=== PATIENT | male | born 1940 | race Caucasian/White ===

== ENCOUNTER 2019-10-05 13:16 | Inpatient (IN) ==
[2019-10-05] MEDS ORDERED: SODIUM CHLORIDE 0.9% 1,000 ML IV STA ×3 (13:45→16:28)
[2019-10-05] MEDS ORDERED: ONDANSETRON 4 MG/2 ML VIAL IV STA (13:45)
[2019-10-05 14:23] LABS: Basophils # 0.1 10*3/uL (0.0-0.2); Basophils % 0.4 % (0.0-0.8); Hematocrit 35.7 VOL% (42.0-52.0); Hemoglobin 10.8 GM/DL (14.0-18.0); Immature Granulocytes % 3.1 %; Immature Granulocytes Absolute 1.01 #; Lymphocytes # 0.6 10*3/uL (1.4-4.0); Lymphocytes % 1.7 % (21.2-54.2); Mean Corpuscular HGB Conc 30.3 GM/DL (32-36); Mean Corpuscular Volume 86.2 FL (87-102); Mean Platelet Volume 11.3 FL (9.6-12.0); Monocytes % 3.6 % (1.7-12.7); Neutrophils % 91.2 % (38.7-73.9); Platelet Count 252 T/CUMM (130-400); Red Blood Count 4.14 MC/CUMM (3.8-5.5); Red Cell Distribution Width 20.4 % (9.3-17.3); White Blood Count 32.9 T/CUMM (4-12)
[2019-10-05] MEDS ORDERED: LEVOFLOXACIN INJ 750 MG in PREMIX 1 EACH IV STA (14:54)
[2019-10-05] MEDS ORDERED: VANCOMYCIN INJ 1,250 MG in SODIUM CHLORIDE 0.9% 250 ML IV STA (14:57)
[2019-10-05 15:11] LABS: Alanine Aminotransferase 35 U/L (16-61); Albumin 2.9 G/DL (3.4-5.0); Alkaline Phosphatase 212 U/L (45-117); Aspartate Amino Transferase 71 U/L (0-37); Blood Urea Nitrogen 30 MG/DL (7-18); Calcium 8.8 MG/DL (8.5-10.1); Estimated Glom Filtration Rate 16 ML/MIN; Glucose 118 MG/DL (74-106); Osmolality,Calculated 279.8 MOS/KG (273-304); Total Protein 6.5 G/DL (6.4-8.3)
[2019-10-05] MEDS ORDERED: LEVOFLOXACIN INJ 500 MG in PREMIX 1 EACH IV STA (15:51)
[2019-10-05] MEDS ORDERED: MORPHINE 4 MG/1 ML VIAL IV PRN (16:21)
[2019-10-05] MEDS ORDERED: SODIUM BICARBONATE 50 MEQ/50 ML VIAL IV STA (16:28)
[2019-10-05] MEDS ORDERED: DOPamine 800 MG/250 ML PREMIX IV SCH (16:30)
[2019-10-05 16:35] LABS: Apearance,Urine CLOUDY (Clear); Bilirubin,Urine Negative (Negative); Blood, Urine Large mg/dL (Negative); Glucose,Urine (UA) Negative (Negative); Ketones,Urine Negative (Negative); Nitrite,Urine Negative (Negative); Protein,Urine 100 MG/DL; RBC,Urine 366 /HPF (0-4); Urine Color Amber (Yellow); Urine Specific Gravity 1.018 (1.001-1.035); WBC,Urine 2254 /HPF (0-6)
[2019-10-05 16:55] LABS: INR 1.4; PT Patient Result 14.7 SECS (9.8-11.9)
[2019-10-05] MEDS ORDERED: ACETAMINOPHEN 325 MG SUPP RECTAL ONE (17:20)
[2019-10-05] MEDS ORDERED: DOPamine 800 MG/250 ML PREMIX IV PRN (18:00)
[2019-10-05] MEDS ORDERED: fentaNYL 100 MCG/2 ML VIAL ONE (18:55)
[2019-10-05] MEDS ORDERED: CALCIUM CHLORIDE 1,000 MG/10 ML VIAL IV ONE (18:55)
[2019-10-05] MEDS ORDERED: SEVOFLURANE 1 UNIT/15 MINUTE INH ONE (18:55)
[2019-10-05] MEDS ORDERED: NALOXONE 0.4 MG/ML VIAL ONE (18:55)
[2019-10-05] MEDS ORDERED: ALBUMIN 5% 12.5 GM/250 ML VIAL IV ONE (18:55)
[2019-10-05] MEDS ORDERED: LIDOCAINE 2% 5 ML VIAL ONE (18:55)
[2019-10-05] MEDS ORDERED: EPINEPHrine 1 MG/ML VIAL ONE (18:55)
[2019-10-05] MEDS ORDERED: DEXAMETHASONE 4 MG/1 ML VIAL ONE (18:55)
[2019-10-05] MEDS ORDERED: ONDANSETRON 4 MG/2 ML VIAL ONE (18:55)
[2019-10-05] MEDS ORDERED: SODIUM CHLORIDE 0.9% 250 ML IV ONE (18:56)
[2019-10-05] MEDS ORDERED: SUCCINYLCHOLINE 200 MG/10 ML VIAL ONE (18:56)
[2019-10-05] MEDS ORDERED: LACTATED RINGERS 1,000 ML IV ONE (18:56)
[2019-10-05] MEDS ORDERED: ETOMIDATE 40 MG/20 ML VIAL IV ONE (18:56)
[2019-10-05] MEDS ORDERED: LORazepam 2 MG/1 ML VIAL ONE (19:01)
[2019-10-05] MEDS: SODIUM BICARB INJ 100 MEQ in DEXTROSE 5% 1,000 ML IV SCH (19:01)
[2019-10-05] MEDS: ENOXAPARIN 30 MG/0.3 ML SYRINGE SUBCUT SCH (20:39)
[2019-10-05] MEDS: PANTOPRAZOLE 40 MG VIAL IV SCH (20:39)
[2019-10-05] MEDS: LORazepam 2 MG/1 ML VIAL IV PRN (20:49)
[2019-10-05] MEDS: CLINDAMYCIN INJ 900 MG in PREMIX 1 EACH IV SCH (21:31)
[2019-10-05] MEDS: LINEZOLID INJ 600 MG in PREMIX 1 EACH IV SCH (22:04)
[2019-10-06] MEDS: LORazepam 2 MG/1 ML VIAL IV PRN ×2 (01:13→16:13)
[2019-10-06 04:06] LABS: Basophils % 0.1 % (0.0-0.8); Hematocrit 29.1 VOL% (42.0-52.0); Hemoglobin 9.2 GM/DL (14.0-18.0); Lymphocytes # 0.9 10*3/uL (1.4-4.0); Lymphocytes % 2.5 % (21.2-54.2); Mean Corpuscular HGB Conc 31.6 GM/DL (32-36); Mean Corpuscular Volume 83.4 FL (87-102); Mean Platelet Volume 11.4 FL (9.6-12.0); Monocytes % 5.5 % (1.7-12.7); Neutrophils % 85.9 % (38.7-73.9); Platelet Count 173 T/CUMM (130-400); Red Blood Count 3.49 MC/CUMM (3.8-5.5); Red Cell Distribution Width 20.8 % (9.3-17.3); White Blood Count 36.4 T/CUMM (4-12)
[2019-10-06] MEDS: CLINDAMYCIN INJ 900 MG in PREMIX 1 EACH IV SCH ×3 (04:22→21:12)
[2019-10-06 04:28] LABS: Albumin 2.3 G/DL (3.4-5.0); Bilirubin,Total 1.6 MG/DL (0.2-1.0); Calcium 7.9 MG/DL (8.5-10.1); Osmolality,Calculated 278.2 MOS/KG (273-304); Total Protein 5.6 G/DL (6.4-8.3)
[2019-10-06 05:34] LABS: Band Neutrophils 16 % (0-10); Lymphocytes 2 % (20-55); Metamyelocytes 4 %; Myelocytes 2 %; Segmented Neutrophils 72 % (50-85); Total Cells Counted 100
[2019-10-06 05:38] LABS: Hypochromasia 1+
[2019-10-06 05:39] LABS: Microcytosis 1+; Ovalocytes Slight
[2019-10-06 05:44] LABS: Band Neutrophils 18 % (0-10); Lymphocytes 3 % (20-55); Metamyelocytes 5 %; Myelocytes 1 %; Segmented Neutrophils 67 % (50-85); Total Cells Counted 100
[2019-10-06 05:46] LABS: Hypochromasia 1+; Microcytosis 1+
[2019-10-06 05:47] LABS: Giant Platelets Few; Ovalocytes Slight; Platelet Estimate Normal
[2019-10-06] MEDS: SODIUM BICARB INJ 100 MEQ in DEXTROSE 5% 1,000 ML IV SCH ×2 (05:54→17:36)
[2019-10-06] MEDS: LINEZOLID INJ 600 MG in PREMIX 1 EACH IV SCH ×2 (08:21→21:13)
[2019-10-06] MEDS ORDERED: LEVOFLOXACIN INJ 500 MG in PREMIX 1 EACH IV SCH (16:30)
[2019-10-06] MEDS: ENOXAPARIN 30 MG/0.3 ML SYRINGE SUBCUT SCH (21:12)
[2019-10-06] MEDS: PANTOPRAZOLE 40 MG VIAL IV SCH (21:12)
[2019-10-07 03:13] LABS: Hematocrit 28.3 VOL% (42.0-52.0); Hemoglobin 9.3 GM/DL (14.0-18.0); Immature Granulocytes Absolute 1.73 #; Lymphocytes # 1.1 10*3/uL (1.4-4.0); Lymphocytes % 3.8 % (21.2-54.2); Mean Corpuscular HGB Conc 32.9 GM/DL (32-36); Mean Corpuscular Volume 79.5 FL (87-102); Mean Platelet Volume 11.9 FL (9.6-12.0); Monocytes % 4.5 % (1.7-12.7); NRBC # 0.03 10*3/uL; Neutrophils % 85.7 % (38.7-73.9); Platelet Count 151 T/CUMM (130-400); Red Blood Count 3.56 MC/CUMM (3.8-5.5); Red Cell Distribution Width 20.3 % (9.3-17.3)
[2019-10-07 03:27] LABS: Calcium 7.8 MG/DL (8.5-10.1); Osmolality,Calculated 277.7 MOS/KG (273-304)
[2019-10-07] MEDS: SODIUM BICARB INJ 100 MEQ in DEXTROSE 5% 1,000 ML IV SCH (03:54)
[2019-10-07 04:13] LABS: Band Neutrophils 7 % (0-10); Lymphocytes 6 % (20-55); Segmented Neutrophils 84 % (50-85); Total Cells Counted 100
[2019-10-07 04:14] LABS: Hypochromasia 1+; Platelet Estimate Adequate
[2019-10-07 04:15] LABS: Microcytosis 1+; Ovalocytes Slight
[2019-10-07] MEDS: CLINDAMYCIN INJ 900 MG in PREMIX 1 EACH IV SCH ×3 (05:30→20:28)
[2019-10-07] MEDS: LINEZOLID INJ 600 MG in PREMIX 1 EACH IV SCH (08:36)
[2019-10-07] MEDS: LEVOFLOXACIN INJ 500 MG in PREMIX 1 EACH IV SCH (14:03)
[2019-10-07] MEDS: SODIUM BICARB INJ 50 MEQ in SODIUM CHLORIDE 0.45% 1,000 ML IV SCH (14:03)
[2019-10-07] MEDS ORDERED: METOCLOPRAMIDE 10 MG TABLET PO PRN (17:53)
[2019-10-07] MEDS ORDERED: FUROSEMIDE 40 MG/4 ML VIAL IV ONE (20:12)
[2019-10-07] MEDS ORDERED: MAGNESIUM SULF RIDER 2 GM in PREMIX 1 EACH IV ONE (20:12)
[2019-10-07] MEDS: cilostazoL 50 MG TABLET PO SCH (20:31)
[2019-10-07] MEDS: HEPARIN 5,000 UNIT/1 ML VIAL SUBCUT SCH (20:32)
[2019-10-08] MEDS: SODIUM BICARB INJ 50 MEQ in SODIUM CHLORIDE 0.45% 1,000 ML IV SCH (00:33)
[2019-10-08 03:11] LABS: Basophils % 0.1 % (0.0-0.8); Eosinophils % 0.1 % (0.00-10.9); Hematocrit 29.9 VOL% (42.0-52.0); Hemoglobin 10.2 GM/DL (14.0-18.0); Immature Granulocytes % 0.9 %; Lymphocytes # 1.6 10*3/uL (1.4-4.0); Lymphocytes % 4.8 % (21.2-54.2); Mean Corpuscular HGB Conc 34.1 GM/DL (32-36); Mean Corpuscular Volume 76.3 FL (87-102); Mean Platelet Volume 11.8 FL (9.6-12.0); Monocytes % 2.2 % (1.7-12.7); NRBC # 0.05 10*3/uL; Neutrophils % 91.9 % (38.7-73.9); Platelet Count 150 T/CUMM (130-400); Red Blood Count 3.92 MC/CUMM (3.8-5.5); Red Cell Distribution Width 19.5 % (9.3-17.3); White Blood Count 32.2 T/CUMM (4-12)
[2019-10-08 03:28] LABS: Calcium 7.8 MG/DL (8.5-10.1); Osmolality,Calculated 274.1 MOS/KG (273-304)
[2019-10-08 04:15] LABS: Lymphocytes 4 % (20-55); Segmented Neutrophils 94 % (50-85); Total Cells Counted 100
[2019-10-08 04:16] LABS: Anisocytosis 1+; Platelet Estimate Normal; Target Cells 1+
[2019-10-08] MEDS ORDERED: POTASSIUM CHLORIDE 20 MEQ TABLET PO ONE (05:40)
[2019-10-08] MEDS: CLINDAMYCIN INJ 900 MG in PREMIX 1 EACH IV SCH ×3 (06:09→20:32)
[2019-10-08] MEDS: HEPARIN 5,000 UNIT/1 ML VIAL SUBCUT SCH ×3 (06:09→20:39)
[2019-10-08] MEDS: CLOPIDOGREL 75 MG TABLET PO SCH (08:23)
[2019-10-08] MEDS: cilostazoL 50 MG TABLET PO SCH ×2 (08:23→20:38)
[2019-10-08] MEDS: ASPIRIN EC 325 MG TABLET PO SCH (08:23)
[2019-10-08] MEDS: PANTOPRAZOLE 40 MG TABLET PO SCH (08:23)
[2019-10-08 08:59] LABS: Ferritin 185.1 ng/ml (26-388)
[2019-10-08] MEDS: ONDANSETRON 4 MG/2 ML VIAL IV PRN (09:31)
[2019-10-08] MEDS ORDERED: MAGNESIUM SULF RIDER 4 GM in PREMIX 1 EACH IV PRN (10:14)
[2019-10-08] MEDS ORDERED: MAGNESIUM SULF RIDER 2 GM in PREMIX 1 EACH IV PRN (10:14)
[2019-10-08 14:34] LABS: ABG Base Excess 6.5 MMOL/L (-2.5-2.5); ABG HCO3 30.2 MMOL/L (20-26); ABG Oxygen Saturation 88.3 % (95-100); ABG PCO2 39.5 MM HG (35-48); ABG PH 7.493 (7.35-7.45); ABG PO2 54.1 MM HG (80-95); ABG TCO2 27.6 MMOL/L (23-27); Allen Test Positive
[2019-10-08] MEDS: FUROSEMIDE 40 MG/4 ML VIAL IV SCH (15:20)
[2019-10-09] MEDS ORDERED: LORazepam 2 MG/1 ML VIAL IV ONE (03:03)
[2019-10-09] MEDS: HEPARIN 5,000 UNIT/1 ML VIAL SUBCUT SCH ×3 (05:05→20:11)
[2019-10-09] MEDS: CLINDAMYCIN INJ 900 MG in PREMIX 1 EACH IV SCH (05:09)
[2019-10-09 05:59] LABS: Basophils # 0.1 10*3/uL (0.0-0.2); Basophils % 0.5 % (0.0-0.8); Eosinophils # 0.1 10*3/uL (0.0-0.87); Eosinophils % 0.5 % (0.00-10.9); Hematocrit 30.3 VOL% (42.0-52.0); Hemoglobin 10.4 GM/DL (14.0-18.0); Immature Granulocytes % 4.3 %; Immature Granulocytes Absolute 1.04 #; Lymphocytes # 2.2 10*3/uL (1.4-4.0); Mean Corpuscular HGB Conc 34.3 GM/DL (32-36); Mean Corpuscular Volume 76.1 FL (87-102); Mean Platelet Volume 12.3 FL (9.6-12.0); Monocytes % 4.7 % (1.7-12.7); NRBC # 0.03 10*3/uL; Platelet Count 139 T/CUMM (130-400); Red Blood Count 3.98 MC/CUMM (3.8-5.5); Red Cell Distribution Width 18.9 % (9.3-17.3); White Blood Count 24.4 T/CUMM (4-12)
[2019-10-09 06:25] LABS: Calcium 8.6 MG/DL (8.5-10.1); Osmolality,Calculated 289.1 MOS/KG (273-304)
[2019-10-09 06:26] LABS: Calcium 8.5 MG/DL (8.5-10.1); Eosinophils 2 % (0-10); Hypochromasia 1+; Lymphocytes 6 % (20-55); Osmolality,Calculated 290.1 MOS/KG (273-304); Platelet Estimate Normal; Segmented Neutrophils 88 % (50-85); Total Cells Counted 100
[2019-10-09 06:27] LABS: Microcytosis Slight
[2019-10-09] MEDS: PANTOPRAZOLE 40 MG TABLET PO SCH (08:18)
[2019-10-09] MEDS: POTASSIUM CHLORIDE 20 MEQ TABLET PO PRN (08:18)
[2019-10-09] MEDS: CLOPIDOGREL 75 MG TABLET PO SCH (08:18)
[2019-10-09] MEDS: ASPIRIN EC 325 MG TABLET PO SCH (08:18)
[2019-10-09] MEDS: cilostazoL 50 MG TABLET PO SCH ×2 (08:18→20:10)
[2019-10-09] MEDS: FUROSEMIDE 40 MG/4 ML VIAL IV SCH ×2 (08:18→16:09)
[2019-10-09] MEDS: SULFAMETHOX/TRIMETHOPRIM 800-160 MG TABLET PO SCH ×2 (10:45→20:10)
[2019-10-09] MEDS ORDERED: HALOPERIDOL 5 MG/ML AMP IM PRN (11:29)
[2019-10-09] MEDS: LEVOFLOXACIN INJ 500 MG in PREMIX 1 EACH IV SCH (16:09)
[2019-10-10] MEDS: HEPARIN 5,000 UNIT/1 ML VIAL SUBCUT SCH ×3 (05:52→20:19)
[2019-10-10 05:59] LABS: Basophils % 0.1 % (0.0-0.8); Eosinophils # 0.2 10*3/uL (0.0-0.87); Hematocrit 33.2 VOL% (42.0-52.0); Immature Granulocytes % 8.5 %; Immature Granulocytes Absolute 1.32 #; Lymphocytes # 1.8 10*3/uL (1.4-4.0); Lymphocytes % 11.7 % (21.2-54.2); Mean Corpuscular HGB Conc 33.1 GM/DL (32-36); Mean Corpuscular Volume 77.9 FL (87-102); Mean Platelet Volume 11.5 FL (9.6-12.0); Monocytes % 8.7 % (1.7-12.7); NRBC # 0.02 10*3/uL; Platelet Count 151 T/CUMM (130-400); Red Blood Count 4.26 MC/CUMM (3.8-5.5); Red Cell Distribution Width 19.3 % (9.3-17.3); White Blood Count 15.5 T/CUMM (4-12)
[2019-10-10 06:12] LABS: Calcium 8.7 MG/DL (8.5-10.1); Osmolality,Calculated 286.1 MOS/KG (273-304)
[2019-10-10 06:35] LABS: Band Neutrophils 2 % (0-10); Hypochromasia 1+; Lymphocytes 10 % (20-55); Microcytosis Slight; Myelocytes 1 %; Platelet Estimate Adequate; Segmented Neutrophils 82 % (50-85); Total Cells Counted 100
[2019-10-10] MEDS: SULFAMETHOX/TRIMETHOPRIM 800-160 MG TABLET PO SCH ×2 (08:33→20:20)
[2019-10-10] MEDS: PANTOPRAZOLE 40 MG TABLET PO SCH (08:33)
[2019-10-10] MEDS: ASPIRIN EC 325 MG TABLET PO SCH (08:33)
[2019-10-10] MEDS: cilostazoL 50 MG TABLET PO SCH ×2 (08:33→20:20)
[2019-10-10] MEDS: POTASSIUM CHLORIDE 20 MEQ TABLET PO PRN (08:33)
[2019-10-10] MEDS: CLOPIDOGREL 75 MG TABLET PO SCH (08:33)
[2019-10-10] MEDS: FUROSEMIDE 40 MG/4 ML VIAL IV SCH (08:34)
[2019-10-10] MEDS: ONDANSETRON 4 MG/2 ML VIAL IV PRN (21:36)
[2019-10-11 04:36] LABS: Basophils % 0.2 % (0.0-0.8); Eosinophils # 0.4 10*3/uL (0.0-0.87); Eosinophils % 2.7 % (0.00-10.9); Hematocrit 32.2 VOL% (42.0-52.0); Hemoglobin 10.4 GM/DL (14.0-18.0); Immature Granulocytes % 11.6 %; Immature Granulocytes Absolute 1.68 #; Lymphocytes # 2.8 10*3/uL (1.4-4.0); Lymphocytes % 19.2 % (21.2-54.2); Mean Corpuscular HGB Conc 32.3 GM/DL (32-36); Mean Corpuscular Volume 78.7 FL (87-102); Mean Platelet Volume 11.7 FL (9.6-12.0); Monocytes % 11.1 % (1.7-12.7); Neutrophils % 55.2 % (38.7-73.9); Platelet Count 199 T/CUMM (130-400); Red Blood Count 4.09 MC/CUMM (3.8-5.5); Red Cell Distribution Width 19.1 % (9.3-17.3); White Blood Count 14.5 T/CUMM (4-12)
[2019-10-11 04:55] LABS: Calcium 8.6 MG/DL (8.5-10.1); Osmolality,Calculated 284.1 MOS/KG (273-304)
[2019-10-11 05:28] LABS: Atypical Lymphocytes Few; Band Neutrophils 4 % (0-10); Eosinophils 2 % (0-10); Hypochromasia 1+; Lymphocytes 19 % (20-55); Metamyelocytes 5 %; Promyelocytes 2 %; Segmented Neutrophils 61 % (50-85); Total Cells Counted 100
[2019-10-11 05:29] LABS: Microcytosis 1+; Polychromasia Slight
[2019-10-11] MEDS: HEPARIN 5,000 UNIT/1 ML VIAL SUBCUT SCH ×3 (05:46→21:09)
[2019-10-11] MEDS: POTASSIUM CHLORIDE 20 MEQ TABLET PO PRN (05:47)
[2019-10-11] MEDS: PANTOPRAZOLE 40 MG TABLET PO SCH (08:18)
[2019-10-11] MEDS: SULFAMETHOX/TRIMETHOPRIM 800-160 MG TABLET PO SCH ×2 (08:18→21:06)
[2019-10-11] MEDS: CLOPIDOGREL 75 MG TABLET PO SCH (08:18)
[2019-10-11] MEDS: cilostazoL 50 MG TABLET PO SCH ×2 (08:18→21:06)
[2019-10-11] MEDS: ASPIRIN EC 325 MG TABLET PO SCH (08:18)
[2019-10-11] MEDS ORDERED: MAGNESIUM SULF RIDER 2 GM in PREMIX 1 EACH IV ONE (09:18)
[2019-10-11] MEDS: POTASSIUM CHLORIDE 20 MEQ TABLET PO SCH ×3 (11:24→17:59)
[2019-10-11] MEDS: atenoloL 25 MG TABLET PO SCH (11:24)
[2019-10-11] MEDS: amLODIPine 10 MG TABLET PO SCH (11:24)
[2019-10-11] MEDS: LEVOFLOXACIN INJ 500 MG in PREMIX 1 EACH IV SCH (14:57)
[2019-10-12] MEDS: HEPARIN 5,000 UNIT/1 ML VIAL SUBCUT SCH ×3 (04:32→20:49)
[2019-10-12 06:17] LABS: Basophils # 0.1 10*3/uL (0.0-0.2); Basophils % 0.2 % (0.0-0.8); Eosinophils # 0.5 10*3/uL (0.0-0.87); Eosinophils % 2.4 % (0.00-10.9); Hematocrit 35.9 VOL% (42.0-52.0); Hemoglobin 11.3 GM/DL (14.0-18.0); Immature Granulocytes % 8.2 %; Immature Granulocytes Absolute 1.66 #; Lymphocytes % 15.1 % (21.2-54.2); Mean Corpuscular HGB Conc 31.5 GM/DL (32-36); Mean Corpuscular Volume 80.5 FL (87-102); Mean Platelet Volume 11.2 FL (9.6-12.0); Monocytes % 10.3 % (1.7-12.7); Neutrophils % 63.8 % (38.7-73.9); Platelet Count 236 T/CUMM (130-400); Red Blood Count 4.46 MC/CUMM (3.8-5.5); Red Cell Distribution Width 20.3 % (9.3-17.3); White Blood Count 20.1 T/CUMM (4-12)
[2019-10-12 06:26] LABS: Calcium 8.9 MG/DL (8.5-10.1); Osmolality,Calculated 276.2 MOS/KG (273-304)
[2019-10-12 07:28] LABS: Band Neutrophils 4 % (0-10); Eosinophils 1 % (0-10); Lymphocytes 19 % (20-55); Promyelocytes 1 %; Segmented Neutrophils 66 % (50-85); Total Cells Counted 100
[2019-10-12 07:29] LABS: Hypochromasia 1+; Microcytosis 1+; Platelet Estimate Normal
[2019-10-12] MEDS: ASPIRIN EC 325 MG TABLET PO SCH (08:37)
[2019-10-12] MEDS: SULFAMETHOX/TRIMETHOPRIM 800-160 MG TABLET PO SCH (08:37)
[2019-10-12] MEDS: CLOPIDOGREL 75 MG TABLET PO SCH (08:37)
[2019-10-12] MEDS: amLODIPine 10 MG TABLET PO SCH (08:37)
[2019-10-12] MEDS: PANTOPRAZOLE 40 MG TABLET PO SCH (08:38)
[2019-10-12] MEDS: cilostazoL 50 MG TABLET PO SCH ×2 (08:38→20:49)
[2019-10-12] MEDS: atenoloL 25 MG TABLET PO SCH (08:38)
[2019-10-13] MEDS: HEPARIN 5,000 UNIT/1 ML VIAL SUBCUT SCH ×2 (05:47→15:21)
[2019-10-13 06:56] LABS: Basophils # 0.1 10*3/uL (0.0-0.2); Basophils % 0.3 % (0.0-0.8); Eosinophils # 0.4 10*3/uL (0.0-0.87); Eosinophils % 2.4 % (0.00-10.9); Hematocrit 34.9 VOL% (42.0-52.0); Hemoglobin 11.4 GM/DL (14.0-18.0); Immature Granulocytes % 8.1 %; Immature Granulocytes Absolute 1.47 #; Lymphocytes # 2.3 10*3/uL (1.4-4.0); Lymphocytes % 12.5 % (21.2-54.2); Mean Corpuscular HGB Conc 32.7 GM/DL (32-36); Mean Corpuscular Volume 80.4 FL (87-102); Mean Platelet Volume 10.3 FL (9.6-12.0); Monocytes % 8.8 % (1.7-12.7); Neutrophils % 67.9 % (38.7-73.9); Platelet Count 250 T/CUMM (130-400); Red Blood Count 4.34 MC/CUMM (3.8-5.5); Red Cell Distribution Width 20.8 % (9.3-17.3); White Blood Count 18.3 T/CUMM (4-12)
[2019-10-13 07:27] LABS: Calcium 8.8 MG/DL (8.5-10.1); Osmolality,Calculated 273.2 MOS/KG (273-304)
[2019-10-13 07:41] LABS: Anisocytosis 2+; Band Neutrophils 7 % (0-10); Eosinophils 3 % (0-10); Lymphocytes 14 % (20-55); Platelet Estimate Normal; Segmented Neutrophils 69 % (50-85); Total Cells Counted 100
[2019-10-13 07:42] LABS: Hypochromasia Slight; Smudge Cells Few
[2019-10-13 08:17] LABS: Basophils # 0.2 10*3/uL (0.0-0.2); Basophils % 0.7 % (0.0-0.8); Eosinophils # 0.5 10*3/uL (0.0-0.87); Eosinophils % 2.2 % (0.00-10.9); Hematocrit 35.5 VOL% (42.0-52.0); Hemoglobin 11.2 GM/DL (14.0-18.0); Immature Granulocytes % 6.1 %; Immature Granulocytes Absolute 1.22 #; Lymphocytes # 2.5 10*3/uL (1.4-4.0); Lymphocytes % 12.7 % (21.2-54.2); Mean Corpuscular HGB Conc 31.5 GM/DL (32-36); Mean Corpuscular Volume 81.6 FL (87-102); Mean Platelet Volume 10.4 FL (9.6-12.0); Monocytes % 9.1 % (1.7-12.7); Neutrophils % 69.2 % (38.7-73.9); Platelet Count 266 T/CUMM (130-400); Red Blood Count 4.35 MC/CUMM (3.8-5.5); Red Cell Distribution Width 20.6 % (9.3-17.3); White Blood Count 20.1 T/CUMM (4-12)
[2019-10-13 08:41] LABS: Band Neutrophils 3 % (0-10); Eosinophils 4 % (0-10); Lymphocytes 12 % (20-55); Metamyelocytes 3 %; Myelocytes 2 %; Segmented Neutrophils 73 % (50-85); Total Cells Counted 100
[2019-10-13 08:42] LABS: Anisocytosis 2+; Basophilic Stippling Slight; Macrocytosis 1+; Platelet Estimate Normal; Smudge Cells Few
[2019-10-13 08:45] LABS: Calcium 8.8 MG/DL (8.5-10.1); Osmolality,Calculated 271.4 MOS/KG (273-304)
[2019-10-13] MEDS: ASPIRIN EC 325 MG TABLET PO SCH (09:48)
[2019-10-13] MEDS: PANTOPRAZOLE 40 MG TABLET PO SCH (09:48)
[2019-10-13] MEDS: CLOPIDOGREL 75 MG TABLET PO SCH (09:48)
[2019-10-13] MEDS: cilostazoL 50 MG TABLET PO SCH (09:48)
[2019-10-13] MEDS: amLODIPine 10 MG TABLET PO SCH (09:48)
[2019-10-13] MEDS: atenoloL 25 MG TABLET PO SCH (09:48)
[2019-10-13 12:05] VITALS: BP 133/46
[2019-10-13] MEDS: LEVOFLOXACIN INJ 500 MG in PREMIX 1 EACH IV SCH (16:45)
== END 2019-10-13 16:03 | disposition home health service (06) | DRG 853 ==
LOC: N.ED 13:16 → SUATTDRO 16:21 → N.EDINP 16:21 → N.ICU 19:02 → N.3E 10-11 10:15
PROVIDERS: ADMIT Family Medicine; ATTEND Family Medicine

== ENCOUNTER 2020-08-24 18:30 | Inpatient (IN) ==
[2020-08-24] MEDS ORDERED: HYDROmorphone 2 MG/1 ML VIAL ONE (18:35)
[2020-08-24] MEDS ORDERED: MIDAZOLAM 2 MG/2 ML VIAL ONE (18:35)
[2020-08-24] MEDS ORDERED: LIDOCAINE 1% 20 ML VIAL ONE (18:35)
[2020-08-24] MEDS ORDERED: HEPARIN 5,000 UNIT/1 ML VIAL ONE (19:00)
[2020-08-24] MEDS ORDERED: TIROFIBAN 5,000 MCG/100 ML PREMIX IV ONE (19:19)
[2020-08-24] MEDS ORDERED: ZALEPLON 5 MG CAPSULE PO PRN (19:39)
[2020-08-24] MEDS ORDERED: ACETAMINOPHEN 325 MG TABLET PO PRN (19:39)
[2020-08-24] MEDS ORDERED: HYDROmorphone 2 MG/1 ML VIAL IV PRN (19:39)
[2020-08-24] MEDS ORDERED: ONDANSETRON 4 MG/2 ML VIAL IV PRN (19:39)
[2020-08-24] MEDS ORDERED: NITROGLYCERIN SL 0.4 MG TABLET SL PRN (19:39)
[2020-08-24] MEDS ORDERED: FUROSEMIDE 40 MG/4 ML VIAL IV ONE (19:43)
[2020-08-24] MEDS: TIROFIBAN 5,000 MCG/100 ML PREMIX IV SCH ×2 (20:29→23:23)
[2020-08-24 21:29] LABS: CKMB % 6.7 %
[2020-08-24 21:30] LABS: Troponin I > 200.000 NG/ML (0.00-0.045)
[2020-08-24] MEDS: ROSUVASTATIN 20 MG TABLET PO SCH (23:13)
[2020-08-24] MEDS: carvediloL 3.125 MG TABLET PO SCH (23:14)
[2020-08-25] MEDS: NITROGLYCERIN DRIP 50 MG/250 ML BOTTLE IV SCH ×2 (02:09→21:17)
[2020-08-25] MEDS: TIROFIBAN 5,000 MCG/100 ML PREMIX IV SCH ×2 (04:21→11:59)
[2020-08-25 06:37] LABS: Basophils # 0.1 10*3/uL (0.0-0.2); Basophils % 0.6 % (0.0-0.8); Eosinophils # 0.1 10*3/uL (0.0-0.87); Eosinophils % 1.1 % (0.00-10.9); Hematocrit 41.2 VOL% (42.0-52.0); Hemoglobin 13.4 GM/DL (14.0-18.0); Immature Granulocytes % 0.4 %; Immature Granulocytes Absolute 0.05 #; Lymphocytes % 15.8 % (21.2-54.2); Mean Corpuscular HGB Conc 32.5 GM/DL (32-36); Mean Platelet Volume 10.9 FL (9.6-12.0); Monocytes % 10.7 % (1.7-12.7); Neutrophils % 71.4 % (38.7-73.9); Platelet Count 283 T/CUMM (130-400); Red Blood Count 4.63 MC/CUMM (3.8-5.5); Red Cell Distribution Width 15.6 % (9.3-17.3); White Blood Count 12.4 T/CUMM (4-12)
[2020-08-25 07:46] LABS: Blood Urea Nitrogen 15 MG/DL (7-18); CKMB % 7.7 %; Calcium 8.9 MG/DL (8.5-10.1); Carbon Dioxide 20 MMOL/L (21-32); Estimated Glom Filtration Rate 83 ML/MIN; Glucose 113 MG/DL (74-106); Osmolality,Calculated 274.8 MOS/KG (273-304); Potassium 3.4 MMOL/L (3.5-5.1); Sodium 137 MMOL/L (136-145); Troponin I > 200.000 NG/ML (0.00-0.045)
[2020-08-25] MEDS ORDERED: ASPIRIN EC 81 MG TABLET PO SCH (09:00)
[2020-08-25] MEDS: carvediloL 3.125 MG TABLET PO SCH ×2 (09:13→16:35)
[2020-08-25 11:40] LABS: Risk Ratio 3.62; VLDL CHOLESTEROL 30.4 MG/DL
[2020-08-25] MEDS: HEPARIN DRIP 25,000 UNITS/500 ML PREMIX IV SCH (12:45)
[2020-08-25 15:38] LABS: CKMB % 4.3 %
[2020-08-25] MEDS ORDERED: POTASSIUM CHLORIDE 20 MEQ/15 ML UDCUP PO ONE (15:59)
[2020-08-25] MEDS ORDERED: MAGNESIUM SULF RIDER 2 GM/50 ML PREMIX IV PRN (16:02)
[2020-08-25] MEDS ORDERED: MAGNESIUM SULF RIDER 4 GM/100 ML PREMIX IV PRN (16:02)
[2020-08-25] MEDS: DONEPEZIL 10 MG TABLET PO SCH (20:26)
[2020-08-25] MEDS: MONTELUKAST 10 MG TABLET PO SCH (20:26)
[2020-08-25] MEDS: ROSUVASTATIN 20 MG TABLET PO SCH (20:26)
[2020-08-25] MEDS: SERTRALINE 50 MG TABLET PO SCH (20:26)
[2020-08-26 04:29] LABS: Basophils # 0.1 10*3/uL (0.0-0.2); Basophils % 0.6 % (0.0-0.8); Eosinophils # 0.2 10*3/uL (0.0-0.87); Eosinophils % 1.3 % (0.00-10.9); Hematocrit 41.4 VOL% (42.0-52.0); Immature Granulocytes % 0.5 %; Immature Granulocytes Absolute 0.07 #; Lymphocytes # 1.5 10*3/uL (1.4-4.0); Lymphocytes % 11.2 % (21.2-54.2); Mean Corpuscular HGB Conc 31.4 GM/DL (32-36); Mean Corpuscular Volume 92.4 FL (87-102); Monocytes % 8.9 % (1.7-12.7); Neutrophils % 77.5 % (38.7-73.9); Platelet Count 268 T/CUMM (130-400); Red Blood Count 4.48 MC/CUMM (3.8-5.5); Red Cell Distribution Width 15.7 % (9.3-17.3); White Blood Count 13.3 T/CUMM (4-12)
[2020-08-26 05:13] LABS: CKMB % 2.5 %; Calcium 8.8 MG/DL (8.5-10.1); Osmolality,Calculated 276.1 MOS/KG (273-304)
[2020-08-26 05:15] LABS: Troponin I 61.4 NG/ML (0.00-0.045)
[2020-08-26] MEDS: ASPIRIN EC 325 MG TABLET PO SCH ×2 (08:30→08:34)
[2020-08-26] MEDS: lisinopriL 2.5 MG TABLET PO SCH (08:30)
[2020-08-26] MEDS: carvediloL 3.125 MG TABLET PO SCH ×2 (08:31→17:40)
[2020-08-26] MEDS: CETIRIZINE 10 MG TABLET PO SCH (08:31)
[2020-08-26] MEDS: HEPARIN DRIP 25,000 UNITS/500 ML PREMIX IV SCH (13:21)
[2020-08-26] MEDS: NITROGLYCERIN DRIP 50 MG/250 ML BOTTLE IV SCH (19:22)
[2020-08-26] MEDS: ROSUVASTATIN 20 MG TABLET PO SCH (22:03)
[2020-08-26] MEDS: SERTRALINE 50 MG TABLET PO SCH (22:03)
[2020-08-26] MEDS: MONTELUKAST 10 MG TABLET PO SCH (22:03)
[2020-08-26] MEDS: DONEPEZIL 10 MG TABLET PO SCH (22:03)
[2020-08-27 04:28] LABS: Basophils # 0.1 10*3/uL (0.0-0.2); Basophils % 0.6 % (0.0-0.8); Eosinophils # 0.2 10*3/uL (0.0-0.87); Eosinophils % 1.5 % (0.00-10.9); Hematocrit 36.6 VOL% (42.0-52.0); Hemoglobin 11.7 GM/DL (14.0-18.0); Immature Granulocytes % 0.4 %; Immature Granulocytes Absolute 0.05 #; Lymphocytes % 17.1 % (21.2-54.2); Mean Corpuscular Volume 92.4 FL (87-102); Mean Platelet Volume 10.9 FL (9.6-12.0); Monocytes % 12.5 % (1.7-12.7); Neutrophils % 67.9 % (38.7-73.9); Platelet Count 240 T/CUMM (130-400); Red Blood Count 3.96 MC/CUMM (3.8-5.5); Red Cell Distribution Width 15.6 % (9.3-17.3); White Blood Count 11.4 T/CUMM (4-12)
[2020-08-27 04:42] LABS: Calcium 8.9 MG/DL (8.5-10.1); Osmolality,Calculated 278.7 MOS/KG (273-304); Potassium 4.4 MMOL/L (3.5-5.1)
[2020-08-27 04:46] LABS: CKMB % 1.8 %
[2020-08-27 04:50] LABS: Troponin I 34.5 NG/ML (0.00-0.045)
[2020-08-27] MEDS: CETIRIZINE 10 MG TABLET PO SCH (08:20)
[2020-08-27] MEDS: lisinopriL 2.5 MG TABLET PO SCH (08:20)
[2020-08-27] MEDS: carvediloL 3.125 MG TABLET PO SCH (08:20)
[2020-08-27] MEDS: ASPIRIN EC 325 MG TABLET PO SCH (08:20)
[2020-08-27] MEDS: HEPARIN DRIP 25,000 UNITS/500 ML PREMIX IV SCH (13:49)
[2020-08-27] MEDS ORDERED: TICAGRELOR 90 MG TABLET PO ONE (15:36)
[2020-08-27] MEDS: carvediloL 6.25 MG TABLET PO SCH (16:29)
[2020-08-27] MEDS ORDERED: HALOPERIDOL 5 MG/ML AMP IM ONE (18:08)
[2020-08-27] MEDS: DONEPEZIL 10 MG TABLET PO SCH (21:12)
[2020-08-27] MEDS: ROSUVASTATIN 20 MG TABLET PO SCH (21:13)
[2020-08-27] MEDS: SERTRALINE 50 MG TABLET PO SCH (21:13)
[2020-08-27] MEDS: TICAGRELOR 90 MG TABLET PO SCH (21:13)
[2020-08-27] MEDS: MONTELUKAST 10 MG TABLET PO SCH (21:13)
[2020-08-28] MEDS ORDERED: FUROSEMIDE 40 MG/4 ML VIAL IV ONE (00:31)
[2020-08-28 05:28] LABS: Basophils # 0.1 10*3/uL (0.0-0.2); Basophils % 0.3 % (0.0-0.8); Hematocrit 40.7 VOL% (42.0-52.0); Hemoglobin 13.2 GM/DL (14.0-18.0); Immature Granulocytes % 0.6 %; Lymphocytes # 0.6 10*3/uL (1.4-4.0); Lymphocytes % 3.1 % (21.2-54.2); Mean Corpuscular HGB Conc 32.4 GM/DL (32-36); Mean Corpuscular Volume 91.9 FL (87-102); Mean Platelet Volume 11.2 FL (9.6-12.0); Monocytes % 8.2 % (1.7-12.7); Neutrophils % 87.8 % (38.7-73.9); Platelet Count 301 T/CUMM (130-400); Red Blood Count 4.43 MC/CUMM (3.8-5.5); Red Cell Distribution Width 15.1 % (9.3-17.3); White Blood Count 17.7 T/CUMM (4-12)
[2020-08-28 05:46] LABS: Calcium 9.1 MG/DL (8.5-10.1); Osmolality,Calculated 274.4 MOS/KG (273-304); Potassium 3.5 MMOL/L (3.5-5.1)
[2020-08-28 06:03] LABS: Lymphocytes 4 % (20-55); Nucleated Red Blood Cells 1 (0-5); Platelet Estimate Normal; Segmented Neutrophils 94 % (50-85); Total Cells Counted 100
[2020-08-28] MEDS: NITROGLYCERIN DRIP 50 MG/250 ML BOTTLE IV SCH (07:24)
[2020-08-28] MEDS ORDERED: ALBUTEROL/IPRATROPIUM 3 ML NEB RESP TX PRN (08:38)
[2020-08-28] MEDS: lisinopriL 2.5 MG TABLET PO SCH ×2 (09:15→21:35)
[2020-08-28] MEDS: ASPIRIN CHEW 81 MG TABLET PO SCH (09:15)
[2020-08-28] MEDS: TICAGRELOR 90 MG TABLET PO SCH ×2 (09:15→21:35)
[2020-08-28] MEDS: ENOXAPARIN 40 MG/0.4 ML SYRINGE SUBCUT SCH (09:15)
[2020-08-28] MEDS: CETIRIZINE 10 MG TABLET PO SCH (09:15)
[2020-08-28] MEDS: carvediloL 6.25 MG TABLET PO SCH ×2 (09:15→16:21)
[2020-08-28] MEDS: FUROSEMIDE 40 MG/4 ML VIAL IV SCH (09:15)
[2020-08-28] MEDS: ALBUTEROL/IPRATROPIUM 3 ML NEB RESP TX SCH ×3 (09:27→20:39)
[2020-08-28] MEDS: SERTRALINE 50 MG TABLET PO SCH (21:35)
[2020-08-28] MEDS: MONTELUKAST 10 MG TABLET PO SCH (21:35)
[2020-08-28] MEDS: DONEPEZIL 10 MG TABLET PO SCH (21:35)
[2020-08-28] MEDS: ROSUVASTATIN 20 MG TABLET PO SCH (21:36)
[2020-08-29] MEDS: ALBUTEROL/IPRATROPIUM 3 ML NEB RESP TX SCH ×7 (00:05→20:18)
[2020-08-29] MEDS: NITROGLYCERIN DRIP 50 MG/250 ML BOTTLE IV SCH (01:08)
[2020-08-29 08:11] LABS: Calcium 8.9 MG/DL (8.5-10.1); Osmolality,Calculated 273.2 MOS/KG (273-304); Potassium 3.3 MMOL/L (3.5-5.1)
[2020-08-29] MEDS ORDERED: POTASSIUM CHLORIDE 20 MEQ TABLET PO ONE (08:29)
[2020-08-29] MEDS: lisinopriL 5 MG TABLET PO SCH ×2 (08:51→21:41)
[2020-08-29] MEDS: SPIRONOLACTONE 25 MG TABLET PO SCH (08:51)
[2020-08-29] MEDS: TICAGRELOR 90 MG TABLET PO SCH ×2 (08:51→21:41)
[2020-08-29] MEDS: carvediloL 6.25 MG TABLET PO SCH ×2 (08:51→17:23)
[2020-08-29] MEDS: ASPIRIN CHEW 81 MG TABLET PO SCH (08:51)
[2020-08-29] MEDS: ENOXAPARIN 40 MG/0.4 ML SYRINGE SUBCUT SCH (08:51)
[2020-08-29] MEDS: FUROSEMIDE 40 MG/4 ML VIAL IV SCH (08:52)
[2020-08-29] MEDS: CETIRIZINE 10 MG TABLET PO SCH (08:52)
[2020-08-29] MEDS: MONTELUKAST 10 MG TABLET PO SCH (21:41)
[2020-08-29] MEDS: SERTRALINE 50 MG TABLET PO SCH (21:41)
[2020-08-29] MEDS: ROSUVASTATIN 20 MG TABLET PO SCH (21:41)
[2020-08-29] MEDS: DONEPEZIL 10 MG TABLET PO SCH (21:41)
[2020-08-30 05:56] LABS: Osmolality,Calculated 280.8 MOS/KG (273-304); Potassium 3.3 MMOL/L (3.5-5.1)
[2020-08-30] MEDS: ALBUTEROL/IPRATROPIUM 3 ML NEB RESP TX SCH ×6 (06:09→23:00)
[2020-08-30] MEDS: NITROGLYCERIN DRIP 50 MG/250 ML BOTTLE IV SCH (08:21)
[2020-08-30] MEDS: ASPIRIN CHEW 81 MG TABLET PO SCH (09:43)
[2020-08-30] MEDS: CETIRIZINE 10 MG TABLET PO SCH (09:44)
[2020-08-30] MEDS: TICAGRELOR 90 MG TABLET PO SCH ×2 (09:44→21:16)
[2020-08-30] MEDS: SPIRONOLACTONE 25 MG TABLET PO SCH (09:44)
[2020-08-30] MEDS: carvediloL 6.25 MG TABLET PO SCH ×2 (09:46→16:41)
[2020-08-30] MEDS: ENOXAPARIN 40 MG/0.4 ML SYRINGE SUBCUT SCH (09:47)
[2020-08-30] MEDS: lisinopriL 5 MG TABLET PO SCH ×2 (09:47→21:16)
[2020-08-30] MEDS: FUROSEMIDE 40 MG/4 ML VIAL IV SCH (09:58)
[2020-08-30] MEDS ORDERED: POTASSIUM CHLORIDE 20 MEQ TABLET PO ONE (12:53)
[2020-08-30] MEDS: ROSUVASTATIN 20 MG TABLET PO SCH (21:16)
[2020-08-30] MEDS: DONEPEZIL 10 MG TABLET PO SCH (21:16)
[2020-08-30] MEDS: MONTELUKAST 10 MG TABLET PO SCH (21:16)
[2020-08-30] MEDS: SERTRALINE 50 MG TABLET PO SCH (21:16)
[2020-08-31] MEDS: ALBUTEROL/IPRATROPIUM 3 ML NEB RESP TX SCH ×6 (03:00→23:43)
[2020-08-31 05:37] LABS: Basophils % 0.3 % (0.0-0.8); Eosinophils # 0.2 10*3/uL (0.0-0.87); Eosinophils % 1.1 % (0.00-10.9); Hematocrit 37.1 VOL% (42.0-52.0); Hemoglobin 12.4 GM/DL (14.0-18.0); Immature Granulocytes % 0.5 %; Immature Granulocytes Absolute 0.06 #; Lymphocytes # 1.3 10*3/uL (1.4-4.0); Lymphocytes % 9.8 % (21.2-54.2); Mean Corpuscular HGB Conc 33.4 GM/DL (32-36); Mean Corpuscular Volume 87.5 FL (87-102); Mean Platelet Volume 11.5 FL (9.6-12.0); Monocytes % 12.4 % (1.7-12.7); Neutrophils % 75.9 % (38.7-73.9); Platelet Count 315 T/CUMM (130-400); Red Blood Count 4.24 MC/CUMM (3.8-5.5); Red Cell Distribution Width 15.5 % (9.3-17.3); White Blood Count 13.1 T/CUMM (4-12)
[2020-08-31] MEDS ORDERED: POTASSIUM CHLORIDE RIDER 10 MEQ in PREMIX 1 EACH IV PRN (06:06)
[2020-08-31] MEDS ORDERED: DIAZEPAM 5 MG TABLET PO ONE (06:06)
[2020-08-31] MEDS ORDERED: diphenhydrAMINE CAP 50 MG CAPSULE PO ONE (06:06)
[2020-08-31 06:10] LABS: Calcium 9.3 MG/DL (8.5-10.1); Osmolality,Calculated 287.4 MOS/KG (273-304); Potassium 3.7 MMOL/L (3.5-5.1)
[2020-08-31] MEDS ORDERED: SODIUM CHLORIDE 0.9% 1,000 ML IV SCH (08:00)
[2020-08-31] MEDS: FUROSEMIDE 40 MG/4 ML VIAL IV SCH (08:36)
[2020-08-31] MEDS: ASPIRIN CHEW 81 MG TABLET PO SCH (09:08)
[2020-08-31] MEDS: lisinopriL 5 MG TABLET PO SCH (09:08)
[2020-08-31] MEDS: SPIRONOLACTONE 25 MG TABLET PO SCH (09:08)
[2020-08-31] MEDS: TICAGRELOR 90 MG TABLET PO SCH ×2 (09:08→21:40)
[2020-08-31] MEDS: carvediloL 6.25 MG TABLET PO SCH (09:09)
[2020-08-31] MEDS: ENOXAPARIN 40 MG/0.4 ML SYRINGE SUBCUT SCH (09:10)
[2020-08-31] MEDS: CETIRIZINE 10 MG TABLET PO SCH (09:41)
[2020-08-31] MEDS ORDERED: LIDOCAINE 1% 20 ML VIAL ONE (11:44)
[2020-08-31] MEDS ORDERED: HEPARIN/NACL 0.9% 2 UNITS/ML 3,000 UNIT/1,500 ML BAG IV ONE (11:44)
[2020-08-31] MEDS ORDERED: NITROGLYCERIN DRIP 50 MG/250 ML BOTTLE IV ONE (12:11)
[2020-08-31] MEDS ORDERED: VERAPAMIL 5 MG/2 ML VIAL ONE (12:30)
[2020-08-31] MEDS ORDERED: HEPARIN 5,000 UNIT/1 ML VIAL ONE (12:30)
[2020-08-31] MEDS ORDERED: HEPARIN/NACL 0.9% 2 UNITS/ML 2,000 UNIT/1,000 ML BAG IV ONE (13:08)
[2020-08-31] MEDS ORDERED: NOREPINEPHRINE 4 MG/4 ML VIAL IV ONE ×2 (13:57→14:02)
[2020-08-31] MEDS ORDERED: ePHEDrine 50 MG/ML VIAL ONE (13:58)
[2020-08-31] MEDS ORDERED: LIDOCAINE 2% 5 ML VIAL ONE (14:31)
[2020-08-31] MEDS ORDERED: ONDANSETRON 4 MG/2 ML VIAL ONE (14:31)
[2020-08-31] MEDS ORDERED: DEXAMETHASONE 4 MG/1 ML VIAL ONE (14:31)
[2020-08-31] MEDS ORDERED: propofoL 200 MG/20 ML VIAL IV ONE ×2 (14:31→16:47)
[2020-08-31] MEDS ORDERED: SEVOFLURANE 1 UNIT/15 MINUTE INH ONE (14:31)
[2020-08-31] MEDS ORDERED: ETOMIDATE 40 MG/20 ML VIAL IV ONE ×2 (14:32→16:47)
[2020-08-31] MEDS ORDERED: PHENYLEPHRINE 1 MG/10 ML SYRINGE IV ONE (14:32)
[2020-08-31] MEDS ORDERED: flumazeniL 0.5 MG/5 ML VIAL IV ONE (16:18)
[2020-08-31] MEDS ORDERED: FUROSEMIDE 40 MG/4 ML VIAL IV ONE (16:22)
[2020-08-31] MEDS ORDERED: SUCCINYLCHOLINE 200 MG/10 ML VIAL ONE (16:47)
[2020-08-31 16:49] LABS: Bilirubin,Urine Negative (Negative); Blood, Urine Moderate mg/dL (Negative); Glucose,Urine (UA) Negative (Negative); Hyaline Casts,Urine 2 /LPF (0-3); Ketones,Urine Negative (Negative); Mucus,Urine Occasional /LPF (Occasional); Nitrite,Urine Negative (Negative); Protein,Urine 30 MG/DL; RBC,Urine 2 /HPF (0-4); Sperm,Urine Occasional /HPF (Negative); Squamous Epithelial Cell,Urine Occasional /HPF (0-10); Urine Appearance Slightly Hazy (Clear); Urine Color Yellow (Yellow); Urine Specific Gravity 1.041 (1.001-1.035); Urine Urobilinogen < 2.0 EU/DL (0.2-1.0)
[2020-08-31] MEDS ORDERED: PHENYLEPHRINE DRIP 40 MG/250 ML PREMIX IV ONE (16:56)
[2020-08-31] MEDS: PHENYLEPHRINE DRIP 40 MG/250 ML PREMIX IV PRN ×2 (16:59→20:20)
[2020-08-31] MEDS ORDERED: SODIUM BICARBONATE 50 MEQ/50 ML VIAL IV ONE ×2 (17:00)
[2020-08-31 17:10] LABS: ABG HCO3 20.1 MMOL/L (20-26); ABG Oxygen Saturation 84.9 % (95-100); ABG PCO2 46.8 MM HG (35-48); ABG PH 7.281 (7.35-7.45); ABG PO2 61.1 MM HG (80-95); ABG TCO2 19.7 MMOL/L (23-27); Allen Test Positive; Pt O2 Delivery Device Ventilator
[2020-08-31] MEDS ORDERED: SODIUM BICARB INJ 50 MEQ in DEXTROSE 5% NACL 0.45% 1,000 ML IV SCH (18:00)
[2020-08-31] MEDS: FUROSEMIDE INJ 200 MG in SODIUM CHLORIDE 0.9% 80 ML IV SCH (19:11)
[2020-08-31 19:22] LABS: ABG Base Excess -0.3 MMOL/L (-2.5-2.5); ABG HCO3 24.1 MMOL/L (20-26); ABG Oxygen Saturation 97.9 % (95-100); ABG PCO2 42.7 MM HG (35-48); ABG PH 7.375 (7.35-7.45)
[2020-08-31] MEDS: DONEPEZIL 10 MG TABLET PO SCH (21:40)
[2020-08-31] MEDS: MONTELUKAST 10 MG TABLET PO SCH (21:40)
[2020-08-31] MEDS: ROSUVASTATIN 20 MG TABLET PO SCH (21:40)
[2020-08-31] MEDS: SERTRALINE 50 MG TABLET PO SCH (21:50)
[2020-09-01] MEDS: PHENYLEPHRINE DRIP 40 MG/250 ML PREMIX IV PRN ×3 (00:10→10:36)
[2020-09-01] MEDS: ALBUTEROL/IPRATROPIUM 3 ML NEB RESP TX SCH ×6 (03:13→22:32)
[2020-09-01 04:31] LABS: ABG Base Excess -0.8 MMOL/L (-2.5-2.5); ABG HCO3 22.9 MMOL/L (20-26); ABG Oxygen Saturation 99.2 % (95-100); ABG PCO2 34.3 MM HG (35-48); ABG PH 7.442 (7.35-7.45); ABG PO2 328.1 MM HG (80-95); ABG TCO2 23.9 MMOL/L (23-27)
[2020-09-01 04:55] LABS: Basophils # 0.1 10*3/uL (0.0-0.2); Basophils % 0.3 % (0.0-0.8); Hematocrit 34.6 VOL% (42.0-52.0); Hemoglobin 11.1 GM/DL (14.0-18.0); Immature Granulocytes % 0.9 %; Immature Granulocytes Absolute 0.25 #; Lymphocytes % 3.8 % (21.2-54.2); Mean Corpuscular HGB Conc 32.1 GM/DL (32-36); Mean Corpuscular Volume 92.5 FL (87-102); Mean Platelet Volume 11.1 FL (9.6-12.0); Monocytes % 7.5 % (1.7-12.7); Neutrophils % 87.5 % (38.7-73.9); Platelet Count 392 T/CUMM (130-400); Red Blood Count 3.74 MC/CUMM (3.8-5.5); Red Cell Distribution Width 15.9 % (9.3-17.3); White Blood Count 26.6 T/CUMM (4-12)
[2020-09-01 05:06] LABS: Calcium 8.2 MG/DL (8.5-10.1); Osmolality,Calculated 296.1 MOS/KG (273-304); Potassium 3.7 MMOL/L (3.5-5.1)
[2020-09-01 05:31] LABS: Band Neutrophils 8 % (0-10); Hypochromasia Slight; Lymphocytes 2 % (20-55); Platelet Estimate Normal; Segmented Neutrophils 84 % (50-85); Total Cells Counted 100
[2020-09-01] MEDS: SPIRONOLACTONE 25 MG TABLET PO SCH (08:01)
[2020-09-01] MEDS: ASPIRIN CHEW 81 MG TABLET PO SCH (08:06)
[2020-09-01] MEDS: ENOXAPARIN 40 MG/0.4 ML SYRINGE SUBCUT SCH (08:07)
[2020-09-01] MEDS: TICAGRELOR 90 MG TABLET PO SCH ×2 (08:07→20:54)
[2020-09-01] MEDS: CETIRIZINE 10 MG TABLET PO SCH (08:07)
[2020-09-01] MEDS: FUROSEMIDE INJ 200 MG in SODIUM CHLORIDE 0.9% 80 ML IV SCH (15:15)
[2020-09-01] MEDS: DONEPEZIL 10 MG TABLET PO SCH (20:53)
[2020-09-01] MEDS: MONTELUKAST 10 MG TABLET PO SCH (20:54)
[2020-09-01] MEDS: SERTRALINE 50 MG TABLET PO SCH (20:54)
[2020-09-01] MEDS: ROSUVASTATIN 20 MG TABLET PO SCH (20:54)
[2020-09-02] MEDS: ALBUTEROL/IPRATROPIUM 3 ML NEB RESP TX SCH ×5 (03:18→19:44)
[2020-09-02 04:12] LABS: Allen Test Positive
[2020-09-02 04:16] LABS: ABG Base Excess 4.3 MMOL/L (-2.5-2.5); ABG HCO3 28.2 MMOL/L (20-26); ABG Oxygen Saturation 95.2 % (95-100); ABG PCO2 36.5 MM HG (35-48); ABG PH 7.488 (7.35-7.45); ABG PO2 68.8 MM HG (80-95); ABG TCO2 24.9 MMOL/L (23-27)
[2020-09-02] MEDS: ENOXAPARIN 40 MG/0.4 ML SYRINGE SUBCUT SCH (08:17)
[2020-09-02] MEDS: TICAGRELOR 90 MG TABLET PO SCH ×2 (08:17→22:04)
[2020-09-02] MEDS: SPIRONOLACTONE 25 MG TABLET PO SCH (08:17)
[2020-09-02] MEDS: CETIRIZINE 10 MG TABLET PO SCH (08:17)
[2020-09-02] MEDS: ASPIRIN CHEW 81 MG TABLET PO SCH (08:18)
[2020-09-02 08:24] LABS: Calcium 8.7 MG/DL (8.5-10.1); Osmolality,Calculated 290.5 MOS/KG (273-304); Potassium 3.2 MMOL/L (3.5-5.1)
[2020-09-02 08:47] LABS: Basophils # 0.1 10*3/uL (0.0-0.2); Basophils % 0.3 % (0.0-0.8); Eosinophils # 0.6 10*3/uL (0.0-0.87); Hematocrit 31.5 VOL% (42.0-52.0); Hemoglobin 10.1 GM/DL (14.0-18.0); Immature Granulocytes % 0.8 %; Immature Granulocytes Absolute 0.13 #; Lymphocytes # 1.2 10*3/uL (1.4-4.0); Lymphocytes % 7.3 % (21.2-54.2); Mean Corpuscular HGB Conc 32.1 GM/DL (32-36); Mean Corpuscular Volume 91.8 FL (87-102); Mean Platelet Volume 10.5 FL (9.6-12.0); Monocytes % 8.3 % (1.7-12.7); Neutrophils % 79.3 % (38.7-73.9); Platelet Count 274 T/CUMM (130-400); Red Blood Count 3.43 MC/CUMM (3.8-5.5); Red Cell Distribution Width 15.7 % (9.3-17.3); White Blood Count 16.2 T/CUMM (4-12)
[2020-09-02] MEDS ORDERED: POTASSIUM CHLORIDE 20 MEQ/15 ML UDCUP PO ONE (09:06)
[2020-09-02] MEDS: FUROSEMIDE 40 MG/4 ML VIAL IV SCH (09:19)
[2020-09-02] MEDS: SERTRALINE 50 MG TABLET PO SCH (22:04)
[2020-09-02] MEDS: ROSUVASTATIN 20 MG TABLET PO SCH (22:04)
[2020-09-02] MEDS: DONEPEZIL 10 MG TABLET PO SCH (22:05)
[2020-09-02] MEDS: MONTELUKAST 10 MG TABLET PO SCH (22:05)
[2020-09-03] MEDS: ALBUTEROL/IPRATROPIUM 3 ML NEB RESP TX SCH ×7 (00:56→23:16)
[2020-09-03 04:31] LABS: ABG Base Excess 6.1 MMOL/L (-2.5-2.5); ABG HCO3 29.9 MMOL/L (20-26); ABG Oxygen Saturation 95.9 % (95-100); ABG PCO2 35.4 MM HG (35-48); ABG PH 7.522 (7.35-7.45); ABG PO2 75.9 MM HG (80-95); ABG TCO2 25.5 MMOL/L (23-27); Allen Test Positive
[2020-09-03 06:36] LABS: Calcium 9.5 MG/DL (8.5-10.1); Osmolality,Calculated 288.5 MOS/KG (273-304); Potassium 3.3 MMOL/L (3.5-5.1)
[2020-09-03 06:40] LABS: Basophils # 0.1 10*3/uL (0.0-0.2); Basophils % 0.3 % (0.0-0.8); Eosinophils # 0.5 10*3/uL (0.0-0.87); Eosinophils % 3.4 % (0.00-10.9); Hemoglobin 11.3 GM/DL (14.0-18.0); Immature Granulocytes % 1.2 %; Immature Granulocytes Absolute 0.18 #; Lymphocytes # 1.1 10*3/uL (1.4-4.0); Lymphocytes % 7.1 % (21.2-54.2); Mean Corpuscular HGB Conc 32.3 GM/DL (32-36); Mean Corpuscular Volume 90.7 FL (87-102); Mean Platelet Volume 11.3 FL (9.6-12.0); Monocytes % 8.8 % (1.7-12.7); Neutrophils % 79.2 % (38.7-73.9); Platelet Count 307 T/CUMM (130-400); Red Blood Count 3.86 MC/CUMM (3.8-5.5); Red Cell Distribution Width 15.3 % (9.3-17.3); White Blood Count 15.5 T/CUMM (4-12)
[2020-09-03] MEDS: FUROSEMIDE 40 MG/4 ML VIAL IV SCH (10:09)
[2020-09-03] MEDS: POTASSIUM CHLORIDE 20 MEQ/15 ML UDCUP PER TUBE PRN ×3 (10:09→14:56)
[2020-09-03] MEDS: ENOXAPARIN 40 MG/0.4 ML SYRINGE SUBCUT SCH (10:09)
[2020-09-03] MEDS: ASPIRIN CHEW 81 MG TABLET PO SCH (10:10)
[2020-09-03] MEDS: SPIRONOLACTONE 25 MG TABLET PO SCH (10:10)
[2020-09-03] MEDS: CETIRIZINE 10 MG TABLET PO SCH (10:10)
[2020-09-03] MEDS: TICAGRELOR 90 MG TABLET PO SCH ×2 (10:10→22:16)
[2020-09-03] MEDS: carvediloL 3.125 MG TABLET PO SCH ×2 (12:15→22:16)
[2020-09-03] MEDS: ROSUVASTATIN 20 MG TABLET PO SCH (22:16)
[2020-09-03] MEDS: DONEPEZIL 10 MG TABLET PO SCH (22:16)
[2020-09-03] MEDS: MONTELUKAST 10 MG TABLET PO SCH (22:16)
[2020-09-03] MEDS: SERTRALINE 50 MG TABLET PO SCH (22:17)
[2020-09-04] MEDS: ALBUTEROL/IPRATROPIUM 3 ML NEB RESP TX SCH ×5 (03:26→19:40)
[2020-09-04 04:55] LABS: Basophils # 0.1 10*3/uL (0.0-0.2); Basophils % 0.3 % (0.0-0.8); Eosinophils # 0.4 10*3/uL (0.0-0.87); Eosinophils % 2.4 % (0.00-10.9); Hematocrit 34.7 VOL% (42.0-52.0); Hemoglobin 11.1 GM/DL (14.0-18.0); Immature Granulocytes % 1.3 %; Lymphocytes # 1.4 10*3/uL (1.4-4.0); Lymphocytes % 8.9 % (21.2-54.2); Mean Corpuscular Volume 91.1 FL (87-102); Mean Platelet Volume 11.4 FL (9.6-12.0); Monocytes % 10.7 % (1.7-12.7); Neutrophils % 76.4 % (38.7-73.9); Platelet Count 348 T/CUMM (130-400); Red Blood Count 3.81 MC/CUMM (3.8-5.5); Red Cell Distribution Width 15.1 % (9.3-17.3); White Blood Count 15.7 T/CUMM (4-12)
[2020-09-04 05:05] LABS: Calcium 9.1 MG/DL (8.5-10.1); Osmolality,Calculated 283.7 MOS/KG (273-304)
[2020-09-04] MEDS: SPIRONOLACTONE 25 MG TABLET PO SCH (09:35)
[2020-09-04] MEDS: ASPIRIN CHEW 81 MG TABLET PO SCH (09:35)
[2020-09-04] MEDS: TICAGRELOR 90 MG TABLET PO SCH ×2 (09:35→22:19)
[2020-09-04] MEDS: carvediloL 3.125 MG TABLET PO SCH ×2 (09:35→22:20)
[2020-09-04] MEDS: CETIRIZINE 10 MG TABLET PO SCH (09:35)
[2020-09-04] MEDS: ENOXAPARIN 40 MG/0.4 ML SYRINGE SUBCUT SCH (09:36)
[2020-09-04] MEDS: FUROSEMIDE 40 MG/4 ML VIAL IV SCH (09:37)
[2020-09-04] MEDS: DONEPEZIL 10 MG TABLET PO SCH (22:19)
[2020-09-04] MEDS: MONTELUKAST 10 MG TABLET PO SCH (22:20)
[2020-09-04] MEDS: ROSUVASTATIN 20 MG TABLET PO SCH (22:20)
[2020-09-04] MEDS: SERTRALINE 50 MG TABLET PO SCH (22:21)
[2020-09-05] MEDS: ALBUTEROL/IPRATROPIUM 3 ML NEB RESP TX SCH ×7 (00:21→23:35)
[2020-09-05 05:08] LABS: Basophils # 0.1 10*3/uL (0.0-0.2); Basophils % 0.4 % (0.0-0.8); Eosinophils # 0.5 10*3/uL (0.0-0.87); Eosinophils % 2.9 % (0.00-10.9); Hematocrit 35.1 VOL% (42.0-52.0); Hemoglobin 11.4 GM/DL (14.0-18.0); Immature Granulocytes % 1.5 %; Immature Granulocytes Absolute 0.24 #; Lymphocytes # 1.7 10*3/uL (1.4-4.0); Lymphocytes % 10.8 % (21.2-54.2); Mean Corpuscular HGB Conc 32.5 GM/DL (32-36); Mean Corpuscular Volume 89.1 FL (87-102); Mean Platelet Volume 11.7 FL (9.6-12.0); Neutrophils % 73.4 % (38.7-73.9); Platelet Count 369 T/CUMM (130-400); Red Blood Count 3.94 MC/CUMM (3.8-5.5); White Blood Count 15.9 T/CUMM (4-12)
[2020-09-05 05:43] LABS: Calcium 9.3 MG/DL (8.5-10.1); Osmolality,Calculated 284.7 MOS/KG (273-304); Potassium 3.8 MMOL/L (3.5-5.1)
[2020-09-05] MEDS: ENOXAPARIN 40 MG/0.4 ML SYRINGE SUBCUT SCH (10:06)
[2020-09-05] MEDS: ASPIRIN CHEW 81 MG TABLET PO SCH (10:07)
[2020-09-05] MEDS: CETIRIZINE 10 MG TABLET PO SCH (10:07)
[2020-09-05] MEDS: FUROSEMIDE 40 MG/4 ML VIAL IV SCH (10:07)
[2020-09-05] MEDS: SPIRONOLACTONE 25 MG TABLET PO SCH (10:07)
[2020-09-05] MEDS: carvediloL 3.125 MG TABLET PO SCH (10:08)
[2020-09-05] MEDS: TICAGRELOR 90 MG TABLET PO SCH ×2 (10:08→20:58)
[2020-09-05] MEDS: ROSUVASTATIN 20 MG TABLET PO SCH (20:57)
[2020-09-05] MEDS: MONTELUKAST 10 MG TABLET PO SCH (20:58)
[2020-09-05] MEDS: SERTRALINE 50 MG TABLET PO SCH (20:58)
[2020-09-05] MEDS: DONEPEZIL 10 MG TABLET PO SCH (20:58)
[2020-09-05] MEDS: carvediloL 6.25 MG TABLET PO SCH (20:58)
[2020-09-05] MEDS: LOSARTAN 25 MG TABLET PO SCH (20:58)
[2020-09-05] MEDS: HALOPERIDOL 5 MG/ML AMP IM PRN (21:30)
[2020-09-06] MEDS: ALBUTEROL/IPRATROPIUM 3 ML NEB RESP TX SCH ×5 (03:07→20:11)
[2020-09-06 05:53] LABS: Basophils # 0.1 10*3/uL (0.0-0.2); Basophils % 0.8 % (0.0-0.8); Eosinophils # 0.4 10*3/uL (0.0-0.87); Eosinophils % 2.2 % (0.00-10.9); Hematocrit 35.9 VOL% (42.0-52.0); Immature Granulocytes % 1.5 %; Immature Granulocytes Absolute 0.26 #; Lymphocytes # 1.7 10*3/uL (1.4-4.0); Lymphocytes % 9.8 % (21.2-54.2); Mean Corpuscular HGB Conc 33.4 GM/DL (32-36); Mean Corpuscular Volume 87.1 FL (87-102); Mean Platelet Volume 11.7 FL (9.6-12.0); Monocytes % 9.2 % (1.7-12.7); Neutrophils % 76.5 % (38.7-73.9); Platelet Count 411 T/CUMM (130-400); Red Blood Count 4.12 MC/CUMM (3.8-5.5); Red Cell Distribution Width 14.9 % (9.3-17.3)
[2020-09-06 06:30] LABS: Calcium 8.8 MG/DL (8.5-10.1); Osmolality,Calculated 282.8 MOS/KG (273-304)
[2020-09-06] MEDS: FUROSEMIDE 40 MG TABLET PO SCH (10:37)
[2020-09-06] MEDS: ASPIRIN CHEW 81 MG TABLET PO SCH (10:37)
[2020-09-06] MEDS: CETIRIZINE 10 MG TABLET PO SCH (10:37)
[2020-09-06] MEDS: carvediloL 6.25 MG TABLET PO SCH (10:37)
[2020-09-06] MEDS: LOSARTAN 25 MG TABLET PO SCH ×2 (10:37→21:05)
[2020-09-06] MEDS: ENOXAPARIN 40 MG/0.4 ML SYRINGE SUBCUT SCH (10:38)
[2020-09-06] MEDS: TICAGRELOR 90 MG TABLET PO SCH ×2 (10:38→21:02)
[2020-09-06] MEDS: SPIRONOLACTONE 25 MG TABLET PO SCH (10:38)
[2020-09-06] MEDS: DONEPEZIL 10 MG TABLET PO SCH (21:00)
[2020-09-06] MEDS: carvediloL 12.5 MG TABLET PO SCH (21:03)
[2020-09-06] MEDS: ROSUVASTATIN 20 MG TABLET PO SCH (21:06)
[2020-09-06] MEDS: MONTELUKAST 10 MG TABLET PO SCH (21:07)
[2020-09-06] MEDS: SERTRALINE 50 MG TABLET PO SCH (21:08)
[2020-09-06] MEDS: HALOPERIDOL 5 MG/ML AMP IM PRN (22:59)
[2020-09-07] MEDS: ALBUTEROL/IPRATROPIUM 3 ML NEB RESP TX SCH ×6 (01:08→19:36)
[2020-09-07] MEDS: ASPIRIN CHEW 81 MG TABLET PO SCH (09:50)
[2020-09-07] MEDS: ENOXAPARIN 40 MG/0.4 ML SYRINGE SUBCUT SCH (09:50)
[2020-09-07] MEDS: TICAGRELOR 90 MG TABLET PO SCH ×2 (09:50→21:18)
[2020-09-07] MEDS: carvediloL 12.5 MG TABLET PO SCH ×2 (09:50→21:18)
[2020-09-07] MEDS: CETIRIZINE 10 MG TABLET PO SCH (09:50)
[2020-09-07] MEDS: LOSARTAN 25 MG TABLET PO SCH ×2 (09:50→21:18)
[2020-09-07] MEDS: FUROSEMIDE 40 MG TABLET PO SCH (09:50)
[2020-09-07] MEDS: SPIRONOLACTONE 25 MG TABLET PO SCH ×2 (09:52→10:03)
[2020-09-07] MEDS: HALOPERIDOL 5 MG/ML AMP IM PRN (21:18)
[2020-09-07] MEDS: MONTELUKAST 10 MG TABLET PO SCH (21:18)
[2020-09-07] MEDS: ROSUVASTATIN 20 MG TABLET PO SCH (21:18)
[2020-09-07] MEDS: SERTRALINE 50 MG TABLET PO SCH (21:18)
[2020-09-07] MEDS: DONEPEZIL 10 MG TABLET PO SCH (21:18)
[2020-09-08] MEDS: ALBUTEROL/IPRATROPIUM 3 ML NEB RESP TX SCH ×7 (00:56→23:50)
[2020-09-08 09:02] LABS: Basophils # 0.1 10*3/uL (0.0-0.2); Basophils % 0.5 % (0.0-0.8); Eosinophils # 0.1 10*3/uL (0.0-0.87); Eosinophils % 0.3 % (0.00-10.9); Hematocrit 38.7 VOL% (42.0-52.0); Hemoglobin 12.6 GM/DL (14.0-18.0); Immature Granulocytes % 1.6 %; Immature Granulocytes Absolute 0.29 #; Lymphocytes # 1.8 10*3/uL (1.4-4.0); Lymphocytes % 9.8 % (21.2-54.2); Mean Corpuscular HGB Conc 32.6 GM/DL (32-36); Mean Platelet Volume 11.2 FL (9.6-12.0); Monocytes % 5.3 % (1.7-12.7); Neutrophils % 82.5 % (38.7-73.9); Platelet Count 526 T/CUMM (130-400); Red Blood Count 4.35 MC/CUMM (3.8-5.5); Red Cell Distribution Width 15.1 % (9.3-17.3); White Blood Count 18.4 T/CUMM (4-12)
[2020-09-08] MEDS: SPIRONOLACTONE 25 MG TABLET PO SCH (09:06)
[2020-09-08] MEDS: CETIRIZINE 10 MG TABLET PO SCH (09:06)
[2020-09-08] MEDS: ASPIRIN CHEW 81 MG TABLET PO SCH (09:06)
[2020-09-08] MEDS: LOSARTAN 25 MG TABLET PO SCH (09:06)
[2020-09-08] MEDS: carvediloL 12.5 MG TABLET PO SCH (09:06)
[2020-09-08] MEDS: FUROSEMIDE 40 MG TABLET PO SCH (09:07)
[2020-09-08] MEDS: TICAGRELOR 90 MG TABLET PO SCH ×2 (09:07→21:45)
[2020-09-08] MEDS: ENOXAPARIN 40 MG/0.4 ML SYRINGE SUBCUT SCH (09:07)
[2020-09-08 09:20] LABS: Calcium 9.1 MG/DL (8.5-10.1); Osmolality,Calculated 288.1 MOS/KG (273-304); Potassium 4.2 MMOL/L (3.5-5.1)
[2020-09-08 12:56] LABS: Bacteria,Urine Occasional /HPF (Few); Bilirubin,Urine Negative (Negative); Blood, Urine Negative (Negative); Glucose,Urine (UA) Negative (Negative); Hyaline Casts,Urine 31 /LPF (0-3); Ketones,Urine Negative (Negative); Mucus,Urine Occasional /LPF (Occasional); Nitrite,Urine Negative (Negative); Protein,Urine Negative; RBC,Urine <1 /HPF (0-4); Squamous Epithelial Cell,Urine Occasional /HPF (0-10); Urine Appearance Slightly Hazy (Clear); Urine Color Yellow (Yellow); Urine Specific Gravity 1.016 (1.001-1.035); Urine Urobilinogen < 2.0 EU/DL (0.2-1.0)
[2020-09-08] MEDS: SODIUM CHLORIDE 0.9% 1,000 ML IV SCH (17:41)
[2020-09-08] MEDS: ROSUVASTATIN 20 MG TABLET PO SCH (21:45)
[2020-09-08] MEDS: QUEtiapine 25 MG TABLET PO SCH (21:45)
[2020-09-08] MEDS: carvediloL 6.25 MG TABLET PO SCH (21:45)
[2020-09-08] MEDS: DONEPEZIL 10 MG TABLET PO SCH (21:45)
[2020-09-08] MEDS: SERTRALINE 50 MG TABLET PO SCH (21:46)
[2020-09-08] MEDS: MONTELUKAST 10 MG TABLET PO SCH (21:46)
[2020-09-09] MEDS ORDERED: HALOPERIDOL 5 MG/ML AMP IM ONE (00:03)
[2020-09-09] MEDS: ALBUTEROL/IPRATROPIUM 3 ML NEB RESP TX SCH ×5 (03:20→19:20)
[2020-09-09 05:20] LABS: Basophils # 0.1 10*3/uL (0.0-0.2); Basophils % 0.7 % (0.0-0.8); Eosinophils # 0.3 10*3/uL (0.0-0.87); Eosinophils % 2.1 % (0.00-10.9); Hematocrit 36.8 VOL% (42.0-52.0); Hemoglobin 12.1 GM/DL (14.0-18.0); Immature Granulocytes % 1.9 %; Immature Granulocytes Absolute 0.28 #; Lymphocytes # 1.8 10*3/uL (1.4-4.0); Mean Corpuscular HGB Conc 32.9 GM/DL (32-36); Mean Corpuscular Volume 88.9 FL (87-102); Mean Platelet Volume 11.5 FL (9.6-12.0); Monocytes % 7.8 % (1.7-12.7); Neutrophils % 75.5 % (38.7-73.9); Platelet Count 502 T/CUMM (130-400); Red Blood Count 4.14 MC/CUMM (3.8-5.5); Red Cell Distribution Width 14.9 % (9.3-17.3); White Blood Count 15.1 T/CUMM (4-12)
[2020-09-09 05:41] LABS: Calcium 8.9 MG/DL (8.5-10.1); Osmolality,Calculated 290.7 MOS/KG (273-304); Potassium 3.6 MMOL/L (3.5-5.1)
[2020-09-09] MEDS: SODIUM CHLORIDE 0.9% 1,000 ML IV SCH ×3 (05:52→23:29)
[2020-09-09] MEDS: carvediloL 6.25 MG TABLET PO SCH ×2 (09:41→20:50)
[2020-09-09] MEDS: TICAGRELOR 90 MG TABLET PO SCH ×2 (09:41→20:50)
[2020-09-09] MEDS: ASPIRIN CHEW 81 MG TABLET PO SCH (09:41)
[2020-09-09] MEDS: LOSARTAN 25 MG TABLET PO SCH (09:41)
[2020-09-09] MEDS: CETIRIZINE 10 MG TABLET PO SCH (09:42)
[2020-09-09] MEDS: ENOXAPARIN 40 MG/0.4 ML SYRINGE SUBCUT SCH (09:42)
[2020-09-09] MEDS: methylPREDNISolone SOD SUC 125 MG/2 ML VIAL IV SCH ×2 (17:53→23:32)
[2020-09-09] MEDS: cefTRIAXone 2,000 MG in SODIUM CHLORIDE 0.9% 100 ML IV SCH (17:53)
[2020-09-09] MEDS: SERTRALINE 50 MG TABLET PO SCH (20:50)
[2020-09-09] MEDS: QUEtiapine 25 MG TABLET PO SCH (20:50)
[2020-09-09] MEDS: DONEPEZIL 10 MG TABLET PO SCH (20:50)
[2020-09-09] MEDS: MONTELUKAST 10 MG TABLET PO SCH (20:51)
[2020-09-09] MEDS: ROSUVASTATIN 20 MG TABLET PO SCH (20:51)
[2020-09-10] MEDS: ALBUTEROL/IPRATROPIUM 3 ML NEB RESP TX SCH ×7 (00:01→23:56)
[2020-09-10] MEDS: cefTRIAXone 2,000 MG in SODIUM CHLORIDE 0.9% 100 ML IV SCH ×2 (03:30→16:45)
[2020-09-10] MEDS: carvediloL 6.25 MG TABLET PO SCH ×2 (09:24→21:30)
[2020-09-10] MEDS: ASPIRIN CHEW 81 MG TABLET PO SCH (09:24)
[2020-09-10] MEDS: ENOXAPARIN 40 MG/0.4 ML SYRINGE SUBCUT SCH (09:24)
[2020-09-10] MEDS: LOSARTAN 25 MG TABLET PO SCH (09:24)
[2020-09-10] MEDS: methylPREDNISolone SOD SUC 125 MG/2 ML VIAL IV SCH ×2 (09:24→16:45)
[2020-09-10] MEDS: TICAGRELOR 90 MG TABLET PO SCH ×2 (09:25→21:30)
[2020-09-10] MEDS: CETIRIZINE 10 MG TABLET PO SCH (09:25)
[2020-09-10] MEDS: SODIUM CHLORIDE 0.9% 1,000 ML IV SCH ×2 (09:42→17:59)
[2020-09-10] MEDS: MONTELUKAST 10 MG TABLET PO SCH (21:30)
[2020-09-10] MEDS: ROSUVASTATIN 20 MG TABLET PO SCH (21:30)
[2020-09-10] MEDS: DONEPEZIL 10 MG TABLET PO SCH (21:30)
[2020-09-10] MEDS: SERTRALINE 50 MG TABLET PO SCH (21:30)
[2020-09-10] MEDS: QUEtiapine 25 MG TABLET PO SCH (21:31)
[2020-09-10] MEDS ORDERED: HALOPERIDOL 5 MG/ML AMP IM ONE (23:55)
[2020-09-11] MEDS: methylPREDNISolone SOD SUC 125 MG/2 ML VIAL IV SCH ×4 (00:10→23:58)
[2020-09-11] MEDS: ALBUTEROL/IPRATROPIUM 3 ML NEB RESP TX SCH ×6 (00:43→18:10)
[2020-09-11] MEDS ORDERED: ROCURONIUM 100 MG/10 ML VIAL IV ONE (04:01)
[2020-09-11] MEDS ORDERED: ETOMIDATE 20 MG/10 ML VIAL IV ONE (04:01)
[2020-09-11] MEDS ORDERED: FUROSEMIDE 40 MG/4 ML VIAL IV ONE (04:15)
[2020-09-11 04:25] LABS: ABG Base Excess -11.9 MMOL/L (-2.5-2.5); ABG HCO3 15.2 MMOL/L (20-26); ABG PCO2 44.4 MM HG (35-48); ABG TCO2 15.1 MMOL/L (23-27)
[2020-09-11] MEDS ORDERED: SODIUM BICARBONATE 50 MEQ/50 ML VIAL IV ONE ×2 (04:47→04:50)
[2020-09-11] MEDS: SODIUM CHLORIDE 0.9% 1,000 ML IV SCH (05:26)
[2020-09-11] MEDS: cefTRIAXone 2,000 MG in SODIUM CHLORIDE 0.9% 100 ML IV SCH ×2 (05:28→16:34)
[2020-09-11 05:42] LABS: Basophils # 0.1 10*3/uL (0.0-0.2); Basophils % 0.2 % (0.0-0.8); Hemoglobin 12.3 GM/DL (14.0-18.0); Immature Granulocytes Absolute 0.66 #; Lymphocytes # 0.5 10*3/uL (1.4-4.0); Lymphocytes % 1.6 % (21.2-54.2); Mean Corpuscular HGB Conc 30.8 GM/DL (32-36); Mean Corpuscular Volume 95.2 FL (87-102); Mean Platelet Volume 11.3 FL (9.6-12.0); Monocytes % 3.1 % (1.7-12.7); Neutrophils % 93.1 % (38.7-73.9); Platelet Count 588 T/CUMM (130-400); Red Cell Distribution Width 15.8 % (9.3-17.3); White Blood Count 33.4 T/CUMM (4-12)
[2020-09-11] MEDS: MIDAZOLAM 100 MG in SODIUM CHLORIDE 0.9% 80 ML IV PRN (05:55)
[2020-09-11 05:59] LABS: ABG Base Excess -2.3 MMOL/L (-2.5-2.5); ABG HCO3 22.5 MMOL/L (20-26); ABG Oxygen Saturation 97.4 % (95-100); ABG PCO2 36.3 MM HG (35-48); ABG PH 7.393 (7.35-7.45); ABG PO2 97.8 MM HG (80-95); ABG TCO2 19.6 MMOL/L (23-27)
[2020-09-11] MEDS ORDERED: PHENYLEPHRINE DRIP 40 MG/250 ML PREMIX IV ONE (06:02)
[2020-09-11 06:04] LABS: Albumin 2.6 G/DL (3.4-5.0); Bilirubin,Total 0.9 MG/DL (0.2-1.0); Calcium 8.7 MG/DL (8.5-10.1); Osmolality,Calculated 301.3 MOS/KG (273-304); Potassium 4.9 MMOL/L (3.5-5.1); Total Protein 6.6 G/DL (6.4-8.2)
[2020-09-11] MEDS: PHENYLEPHRINE DRIP 40 MG/250 ML PREMIX IV PRN ×3 (06:24→20:47)
[2020-09-11 07:06] LABS: Band Neutrophils 1 % (0-10); Lymphocytes 4 % (20-55); Myelocytes 1 %; Segmented Neutrophils 88 % (50-85); Total Cells Counted 100
[2020-09-11 07:07] LABS: Platelet Estimate Increased; Polychromasia Slight
[2020-09-11] MEDS: LOSARTAN 25 MG TABLET PO SCH (08:12)
[2020-09-11] MEDS: carvediloL 6.25 MG TABLET PO SCH ×2 (08:13→20:39)
[2020-09-11 08:22] LABS: Bacteria,Urine Occasional /HPF (Few); Bilirubin,Urine Negative (Negative); Blood, Urine Small mg/dL (Negative); Glucose,Urine (UA) Negative (Negative); Hyaline Casts,Urine 8 /LPF (0-3); Ketones,Urine Negative (Negative); Mucus,Urine Occasional /LPF (Occasional); Nitrite,Urine Negative (Negative); Protein,Urine Negative; RBC,Urine 4 /HPF (0-4); Urine Appearance CLEAR (Clear); Urine Color Straw (Yellow); Urine Specific Gravity 1.006 (1.001-1.035); Urine Urobilinogen < 2.0 EU/DL (0.2-1.0)
[2020-09-11] MEDS ORDERED: DEXTROSE 50% 25 GM/50 ML VIAL IV PRN (08:40)
[2020-09-11] MEDS ORDERED: GLUCAGON 1 MG VIAL IM PRN (08:40)
[2020-09-11] MEDS: ENOXAPARIN 40 MG/0.4 ML SYRINGE SUBCUT SCH (09:22)
[2020-09-11] MEDS: PANTOPRAZOLE 40 MG VIAL IV SCH (09:22)
[2020-09-11] MEDS: TICAGRELOR 90 MG TABLET PO SCH ×2 (09:23→20:37)
[2020-09-11] MEDS: CETIRIZINE 10 MG TABLET PO SCH (09:23)
[2020-09-11] MEDS: ASPIRIN CHEW 81 MG TABLET PO SCH (09:23)
[2020-09-11] MEDS: QUEtiapine 25 MG TABLET PO SCH ×2 (09:23→20:37)
[2020-09-11] MEDS: INSULIN GLARGINE 100 UNIT/ML SUBCUT SCH (09:54)
[2020-09-11] MEDS: INSULIN LISPRO 100 UNIT/ML SUBCUT SCH ×3 (11:52→23:56)
[2020-09-11] MEDS: RIFAMPIN INJ 600 MG in SODIUM CHLORIDE 0.9% 100 ML IV SCH (15:31)
[2020-09-11] MEDS: ROSUVASTATIN 20 MG TABLET PO SCH (20:37)
[2020-09-11] MEDS: DONEPEZIL 10 MG TABLET PO SCH (20:37)
[2020-09-11] MEDS: MONTELUKAST 10 MG TABLET PO SCH (20:37)
[2020-09-11] MEDS: SERTRALINE 50 MG TABLET PO SCH (20:37)
[2020-09-12] MEDS: PHENYLEPHRINE DRIP 40 MG/250 ML PREMIX IV PRN ×4 (01:16→20:00)
[2020-09-12] MEDS: ALBUTEROL/IPRATROPIUM 3 ML NEB RESP TX SCH ×7 (01:17→23:30)
[2020-09-12] MEDS: cefTRIAXone 2,000 MG in SODIUM CHLORIDE 0.9% 100 ML IV SCH ×2 (03:30→16:44)
[2020-09-12 04:22] LABS: ABG HCO3 24.5 MMOL/L (20-26); ABG PCO2 39.9 MM HG (35-48); ABG TCO2 22.5 MMOL/L (23-27)
[2020-09-12 05:09] LABS: Basophils % 0.2 % (0.0-0.8); Hematocrit 31.2 VOL% (42.0-52.0); Immature Granulocytes % 1.3 %; Lymphocytes # 0.5 10*3/uL (1.4-4.0); Lymphocytes % 2.3 % (21.2-54.2); Mean Corpuscular HGB Conc 31.4 GM/DL (32-36); Mean Corpuscular Volume 93.1 FL (87-102); Mean Platelet Volume 11.6 FL (9.6-12.0); Monocytes % 3.4 % (1.7-12.7); Neutrophils % 92.8 % (38.7-73.9); Platelet Count 480 T/CUMM (130-400); Red Blood Count 3.35 MC/CUMM (3.8-5.5); Red Cell Distribution Width 16.3 % (9.3-17.3)
[2020-09-12 05:10] LABS: Hemoglobin 9.8 GM/DL (14.0-18.0)
[2020-09-12 05:20] LABS: Calcium 8.3 MG/DL (8.5-10.1); Osmolality,Calculated 305.6 MOS/KG (273-304); Potassium 4.3 MMOL/L (3.5-5.1)
[2020-09-12] MEDS: INSULIN LISPRO 100 UNIT/ML SUBCUT SCH ×3 (05:36→17:51)
[2020-09-12 05:37] LABS: Hypochromasia Slight; Lymphocytes 2 % (20-55); Platelet Estimate Increased; Segmented Neutrophils 98 % (50-85); Total Cells Counted 100
[2020-09-12] MEDS: PANTOPRAZOLE 40 MG VIAL IV SCH (08:28)
[2020-09-12] MEDS: CETIRIZINE 10 MG TABLET PO SCH (08:28)
[2020-09-12] MEDS: methylPREDNISolone SOD SUC 125 MG/2 ML VIAL IV SCH ×2 (08:28→16:46)
[2020-09-12] MEDS: INSULIN GLARGINE 100 UNIT/ML SUBCUT SCH (08:28)
[2020-09-12] MEDS: TICAGRELOR 90 MG TABLET PO SCH ×2 (08:29→21:39)
[2020-09-12] MEDS: LOSARTAN 25 MG TABLET PO SCH (08:29)
[2020-09-12] MEDS: carvediloL 6.25 MG TABLET PO SCH ×2 (08:29→21:39)
[2020-09-12] MEDS: QUEtiapine 25 MG TABLET PO SCH ×2 (08:29→21:39)
[2020-09-12] MEDS: ENOXAPARIN 40 MG/0.4 ML SYRINGE SUBCUT SCH (08:29)
[2020-09-12] MEDS: ASPIRIN CHEW 81 MG TABLET PO SCH (08:29)
[2020-09-12] MEDS: MIDAZOLAM 100 MG in SODIUM CHLORIDE 0.9% 80 ML IV PRN (13:34)
[2020-09-12] MEDS: RIFAMPIN INJ 600 MG in SODIUM CHLORIDE 0.9% 100 ML IV SCH (15:10)
[2020-09-12] MEDS: DONEPEZIL 10 MG TABLET PO SCH (21:39)
[2020-09-12] MEDS: SERTRALINE 50 MG TABLET PO SCH (21:39)
[2020-09-12] MEDS: MONTELUKAST 10 MG TABLET PO SCH (21:39)
[2020-09-12] MEDS: ROSUVASTATIN 20 MG TABLET PO SCH (21:39)
[2020-09-13] MEDS: INSULIN LISPRO 100 UNIT/ML SUBCUT SCH ×5 (00:44→23:47)
[2020-09-13] MEDS: methylPREDNISolone SOD SUC 125 MG/2 ML VIAL IV SCH ×2 (01:00→09:11)
[2020-09-13 03:32] LABS: ABG Base Excess 1.4 MMOL/L (-2.5-2.5); ABG HCO3 25.7 MMOL/L (20-26); ABG Oxygen Saturation 99.9 % (95-100); ABG PCO2 35.5 MM HG (35-48); ABG PH 7.455 (7.35-7.45); ABG TCO2 22.7 MMOL/L (23-27)
[2020-09-13] MEDS: ALBUTEROL/IPRATROPIUM 3 ML NEB RESP TX SCH ×6 (03:46→23:13)
[2020-09-13] MEDS: PHENYLEPHRINE DRIP 40 MG/250 ML PREMIX IV PRN (04:32)
[2020-09-13] MEDS: cefTRIAXone 2,000 MG in SODIUM CHLORIDE 0.9% 100 ML IV SCH ×2 (05:30→15:42)
[2020-09-13 05:52] LABS: Basophils # 0.1 10*3/uL (0.0-0.2); Basophils % 0.5 % (0.0-0.8); Hematocrit 34.7 VOL% (42.0-52.0); Hemoglobin 10.3 GM/DL (14.0-18.0); Immature Granulocytes % 0.7 %; Immature Granulocytes Absolute 0.16 #; Lymphocytes # 1.4 10*3/uL (1.4-4.0); Lymphocytes % 6.2 % (21.2-54.2); Mean Corpuscular HGB Conc 29.7 GM/DL (32-36); Mean Corpuscular Volume 97.5 FL (87-102); Mean Platelet Volume 11.4 FL (9.6-12.0); Monocytes % 6.3 % (1.7-12.7); Neutrophils % 86.3 % (38.7-73.9); Platelet Count 406 T/CUMM (130-400); Red Blood Count 3.56 MC/CUMM (3.8-5.5); Red Cell Distribution Width 16.6 % (9.3-17.3); White Blood Count 22.9 T/CUMM (4-12)
[2020-09-13 05:53] LABS: Calcium 8.4 MG/DL (8.5-10.1); Osmolality,Calculated 297.4 MOS/KG (273-304); Potassium 4.6 MMOL/L (3.5-5.1)
[2020-09-13 05:55] LABS: Calcium 8.3 MG/DL (8.5-10.1); Osmolality,Calculated 293.7 MOS/KG (273-304); Potassium 4.2 MMOL/L (3.5-5.1)
[2020-09-13] MEDS: MIDAZOLAM 100 MG in SODIUM CHLORIDE 0.9% 80 ML IV PRN ×2 (06:09→20:36)
[2020-09-13 06:32] LABS: Hypochromasia 1+; Lymphocytes 8 % (20-55); Microcytosis 1+; Platelet Estimate Adequate; Segmented Neutrophils 86 % (50-85); Total Cells Counted 100
[2020-09-13] MEDS ORDERED: FUROSEMIDE 40 MG/4 ML VIAL IV ONE (08:44)
[2020-09-13] MEDS: CETIRIZINE 10 MG TABLET PO SCH (09:12)
[2020-09-13] MEDS: TICAGRELOR 90 MG TABLET PO SCH ×2 (09:12→20:37)
[2020-09-13] MEDS: INSULIN GLARGINE 100 UNIT/ML SUBCUT SCH (09:12)
[2020-09-13] MEDS: QUEtiapine 25 MG TABLET PO SCH (09:12)
[2020-09-13] MEDS: ASPIRIN CHEW 81 MG TABLET PO SCH (09:12)
[2020-09-13] MEDS: ENOXAPARIN 40 MG/0.4 ML SYRINGE SUBCUT SCH (09:12)
[2020-09-13] MEDS: PANTOPRAZOLE 40 MG VIAL IV SCH (09:12)
[2020-09-13] MEDS: carvediloL 6.25 MG TABLET PO SCH ×2 (09:12→20:39)
[2020-09-13] MEDS: LOSARTAN 25 MG TABLET PO SCH (09:12)
[2020-09-13] MEDS: RIFAMPIN INJ 600 MG in SODIUM CHLORIDE 0.9% 100 ML IV SCH (14:39)
[2020-09-13] MEDS: methylPREDNISolone SOD SUC 40 MG/1 ML VIAL IV SCH ×2 (15:41→23:48)
[2020-09-13] MEDS: SERTRALINE 50 MG TABLET PO SCH (20:37)
[2020-09-13] MEDS: DONEPEZIL 10 MG TABLET PO SCH (20:38)
[2020-09-13] MEDS: MONTELUKAST 10 MG TABLET PO SCH (20:38)
[2020-09-13] MEDS: ROSUVASTATIN 20 MG TABLET PO SCH (20:38)
[2020-09-14] MEDS: ALBUTEROL/IPRATROPIUM 3 ML NEB RESP TX SCH ×6 (03:11→23:32)
[2020-09-14] MEDS: cefTRIAXone 2,000 MG in SODIUM CHLORIDE 0.9% 100 ML IV SCH (04:58)
[2020-09-14] MEDS: INSULIN LISPRO 100 UNIT/ML SUBCUT SCH ×3 (05:11→17:55)
[2020-09-14 05:13] LABS: ABG HCO3 28.9 MMOL/L (20-26); ABG Oxygen Saturation 99.5 % (95-100); ABG PCO2 37.4 MM HG (35-48); ABG TCO2 25.5 MMOL/L (23-27); Allen Test Positive; Pt O2 Delivery Device Ventilator
[2020-09-14 05:34] LABS: Basophils # 0.1 10*3/uL (0.0-0.2); Basophils % 0.4 % (0.0-0.8); Eosinophils # 0.6 10*3/uL (0.0-0.87); Eosinophils % 3.4 % (0.00-10.9); Hematocrit 36.2 VOL% (42.0-52.0); Hemoglobin 11.5 GM/DL (14.0-18.0); Immature Granulocytes % 0.7 %; Immature Granulocytes Absolute 0.13 #; Lymphocytes # 0.7 10*3/uL (1.4-4.0); Lymphocytes % 3.8 % (21.2-54.2); Mean Corpuscular HGB Conc 31.8 GM/DL (32-36); Mean Corpuscular Volume 92.8 FL (87-102); Mean Platelet Volume 11.7 FL (9.6-12.0); Monocytes % 5.8 % (1.7-12.7); Neutrophils % 85.9 % (38.7-73.9); Platelet Count 361 T/CUMM (130-400); Red Cell Distribution Width 16.4 % (9.3-17.3); White Blood Count 17.5 T/CUMM (4-12)
[2020-09-14 05:52] LABS: Albumin 2.4 G/DL (3.4-5.0); Bilirubin,Direct 0.13 MG/DL (0.0-0.20); Bilirubin,Indirect 0.9 MG/DL (0.0-1.0); Calcium 8.7 MG/DL (8.5-10.1); Osmolality,Calculated 281.7 MOS/KG (273-304); Potassium 4.7 MMOL/L (3.5-5.1); Total Protein 6.6 G/DL (6.4-8.2)
[2020-09-14 06:05] LABS: Eosinophils 5 % (0-10); Hypochromasia Slight; Lymphocytes 1 % (20-55); Microcytosis Slight; Platelet Estimate Adequate; Segmented Neutrophils 90 % (50-85); Total Cells Counted 100
[2020-09-14] MEDS: CETIRIZINE 10 MG TABLET PO SCH (08:10)
[2020-09-14] MEDS: ASPIRIN CHEW 81 MG TABLET PO SCH (08:10)
[2020-09-14] MEDS: carvediloL 6.25 MG TABLET PO SCH ×2 (08:10→20:48)
[2020-09-14] MEDS: LOSARTAN 25 MG TABLET PO SCH (08:10)
[2020-09-14] MEDS: PANTOPRAZOLE 40 MG VIAL IV SCH (08:10)
[2020-09-14] MEDS: methylPREDNISolone SOD SUC 40 MG/1 ML VIAL IV SCH ×2 (08:10→20:46)
[2020-09-14] MEDS: INSULIN GLARGINE 100 UNIT/ML SUBCUT SCH (08:10)
[2020-09-14] MEDS: ENOXAPARIN 40 MG/0.4 ML SYRINGE SUBCUT SCH (08:11)
[2020-09-14] MEDS: TICAGRELOR 90 MG TABLET PO SCH ×2 (08:12→20:47)
[2020-09-14] MEDS: SERTRALINE 50 MG TABLET PO SCH (20:47)
[2020-09-14] MEDS: MONTELUKAST 10 MG TABLET PO SCH (20:47)
[2020-09-14] MEDS: ROSUVASTATIN 20 MG TABLET PO SCH (20:48)
[2020-09-15] MEDS: INSULIN LISPRO 100 UNIT/ML SUBCUT SCH ×4 (00:28→18:35)
[2020-09-15] MEDS: ALBUTEROL/IPRATROPIUM 3 ML NEB RESP TX SCH ×6 (03:12→23:00)
[2020-09-15 05:25] LABS: Basophils % 0.3 % (0.0-0.8); Eosinophils # 0.8 10*3/uL (0.0-0.87); Eosinophils % 5.5 % (0.00-10.9); Hematocrit 31.6 VOL% (42.0-52.0); Hemoglobin 10.2 GM/DL (14.0-18.0); Immature Granulocytes % 0.7 %; Immature Granulocytes Absolute 0.11 #; Lymphocytes # 1.3 10*3/uL (1.4-4.0); Lymphocytes % 8.8 % (21.2-54.2); Mean Corpuscular HGB Conc 32.3 GM/DL (32-36); Mean Corpuscular Volume 91.1 FL (87-102); Mean Platelet Volume 11.6 FL (9.6-12.0); Monocytes % 8.8 % (1.7-12.7); Neutrophils % 75.9 % (38.7-73.9); Platelet Count 290 T/CUMM (130-400); Red Blood Count 3.47 MC/CUMM (3.8-5.5); Red Cell Distribution Width 15.9 % (9.3-17.3); White Blood Count 14.9 T/CUMM (4-12)
[2020-09-15 05:41] LABS: Bilirubin,Direct 0.11 MG/DL (0.0-0.20); Bilirubin,Indirect 0.3 MG/DL (0.0-1.0); Bilirubin,Total 0.4 MG/DL (0.2-1.0); Calcium 8.5 MG/DL (8.5-10.1); Osmolality,Calculated 286.5 MOS/KG (273-304); Potassium 4.2 MMOL/L (3.5-5.1)
[2020-09-15 05:49] LABS: Band Neutrophils 1 % (0-10); Eosinophils 6 % (0-10); Hypochromasia Slight; Lymphocytes 9 % (20-55); Nucleated Red Blood Cells 1 (0-5); Segmented Neutrophils 77 % (50-85); Total Cells Counted 100
[2020-09-15 05:50] LABS: Microcytosis 1+; Platelet Estimate Normal; Polychromasia Slight
[2020-09-15] MEDS: ENOXAPARIN 40 MG/0.4 ML SYRINGE SUBCUT SCH (08:50)
[2020-09-15] MEDS: carvediloL 6.25 MG TABLET PO SCH ×2 (08:50→21:01)
[2020-09-15] MEDS: TICAGRELOR 90 MG TABLET PO SCH ×2 (08:50→20:55)
[2020-09-15] MEDS: LOSARTAN 25 MG TABLET PO SCH (08:50)
[2020-09-15] MEDS: ASPIRIN CHEW 81 MG TABLET PO SCH (08:50)
[2020-09-15] MEDS: CETIRIZINE 10 MG TABLET PO SCH (08:50)
[2020-09-15] MEDS: INSULIN GLARGINE 100 UNIT/ML SUBCUT SCH (08:51)
[2020-09-15] MEDS: methylPREDNISolone SOD SUC 40 MG/1 ML VIAL IV SCH (08:53)
[2020-09-15] MEDS: PANTOPRAZOLE 40 MG VIAL IV SCH (08:55)
[2020-09-15] MEDS: MONTELUKAST 10 MG TABLET PO SCH (20:57)
[2020-09-15] MEDS: ROSUVASTATIN 20 MG TABLET PO SCH (20:57)
[2020-09-15] MEDS: SERTRALINE 50 MG TABLET PO SCH (20:57)
[2020-09-16] MEDS: INSULIN LISPRO 100 UNIT/ML SUBCUT SCH ×4 (00:24→18:58)
[2020-09-16] MEDS: ALBUTEROL/IPRATROPIUM 3 ML NEB RESP TX SCH ×6 (04:10→23:05)
[2020-09-16 05:23] LABS: ABG Base Excess 3.2 MMOL/L (-2.5-2.5); ABG HCO3 25.7 MMOL/L (20-26); ABG Oxygen Saturation 98.7 % (95-100); ABG PCO2 31.7 MM HG (35-48); ABG PH 7.526 (7.35-7.45); ABG TCO2 26.6 MMOL/L (23-27)
[2020-09-16 06:07] LABS: Basophils # 0.1 10*3/uL (0.0-0.2); Basophils % 0.3 % (0.0-0.8); Eosinophils % 5.9 % (0.00-10.9); Hematocrit 33.1 VOL% (42.0-52.0); Hemoglobin 10.4 GM/DL (14.0-18.0); Immature Granulocytes Absolute 0.18 #; Lymphocytes # 2.4 10*3/uL (1.4-4.0); Mean Corpuscular HGB Conc 31.4 GM/DL (32-36); Mean Platelet Volume 11.9 FL (9.6-12.0); Monocytes % 9.1 % (1.7-12.7); Neutrophils % 69.7 % (38.7-73.9); Platelet Count 276 T/CUMM (130-400); Red Blood Count 3.52 MC/CUMM (3.8-5.5); Red Cell Distribution Width 15.9 % (9.3-17.3); White Blood Count 17.3 T/CUMM (4-12)
[2020-09-16 06:24] LABS: Calcium 8.5 MG/DL (8.5-10.1); Potassium 4.6 MMOL/L (3.5-5.1)
[2020-09-16 06:30] LABS: Alanine Aminotransferase 23 U/L (16-61); Albumin 1.9 G/DL (3.4-5.0); Alkaline Phosphatase 87 U/L (45-117); Aspartate Amino Transferase 35 U/L (0-37); Bilirubin,Direct < 0.100 MG/DL (0.0-0.20); Bilirubin,Indirect 0.4 MG/DL (0.0-1.0); Blood Urea Nitrogen 29 MG/DL (7-18); Calcium 8.7 MG/DL (8.5-10.1); Carbon Dioxide 25 MMOL/L (21-32); Estimated Glom Filtration Rate 94 ML/MIN; Glucose 107 MG/DL (74-106); Osmolality,Calculated 280.7 MOS/KG (273-304); Potassium 4.6 MMOL/L (3.5-5.1); Sodium 138 MMOL/L (136-145); Total Protein 5.9 G/DL (6.4-8.2)
[2020-09-16 06:32] LABS: Eosinophils 2 % (0-10); Lymphocytes 15 % (20-55); Segmented Neutrophils 74 % (50-85); Total Cells Counted 100
[2020-09-16 06:33] LABS: Hypochromasia Slight; Microcytosis Slight; Platelet Estimate Adequate
[2020-09-16] MEDS: CETIRIZINE 10 MG TABLET PO SCH (08:24)
[2020-09-16] MEDS: TICAGRELOR 90 MG TABLET PO SCH ×2 (08:24→21:21)
[2020-09-16] MEDS: LOSARTAN 25 MG TABLET PO SCH (08:25)
[2020-09-16] MEDS: ASPIRIN CHEW 81 MG TABLET PO SCH (08:25)
[2020-09-16] MEDS: ENOXAPARIN 40 MG/0.4 ML SYRINGE SUBCUT SCH (08:25)
[2020-09-16] MEDS: carvediloL 6.25 MG TABLET PO SCH ×2 (08:25→21:21)
[2020-09-16] MEDS: INSULIN GLARGINE 100 UNIT/ML SUBCUT SCH (08:26)
[2020-09-16] MEDS: PANTOPRAZOLE 40 MG VIAL IV SCH (08:28)
[2020-09-16 09:36] LABS: ABG Base Excess 3.5 MMOL/L (-2.5-2.5); ABG HCO3 27.5 MMOL/L (20-26); ABG Oxygen Saturation 99.7 % (95-100); ABG PH 7.518 (7.35-7.45); ABG TCO2 23.5 MMOL/L (23-27); Allen Test Positive; Pt O2 Delivery Device Ventilator
[2020-09-16] MEDS ORDERED: HALOPERIDOL 5 MG/ML AMP IM ONE (11:34)
[2020-09-16] MEDS: ROSUVASTATIN 20 MG TABLET PO SCH (21:21)
[2020-09-16] MEDS: MONTELUKAST 10 MG TABLET PO SCH (21:22)
[2020-09-16] MEDS: SERTRALINE 50 MG TABLET PO SCH (21:22)
[2020-09-16] MEDS: HALOPERIDOL 5 MG/ML AMP IM PRN (21:30)
[2020-09-17] MEDS: INSULIN LISPRO 100 UNIT/ML SUBCUT SCH ×5 (01:20→23:53)
[2020-09-17] MEDS: ALBUTEROL/IPRATROPIUM 3 ML NEB RESP TX SCH ×5 (04:40→20:51)
[2020-09-17 05:59] LABS: Basophils % 0.3 % (0.0-0.8); Eosinophils # 0.5 10*3/uL (0.0-0.87); Eosinophils % 4.3 % (0.00-10.9); Hematocrit 30.4 VOL% (42.0-52.0); Hemoglobin 10.2 GM/DL (14.0-18.0); Immature Granulocytes % 0.9 %; Immature Granulocytes Absolute 0.11 #; Lymphocytes % 15.8 % (21.2-54.2); Mean Corpuscular HGB Conc 33.6 GM/DL (32-36); Mean Corpuscular Volume 88.6 FL (87-102); Mean Platelet Volume 12.1 FL (9.6-12.0); Monocytes % 9.6 % (1.7-12.7); Neutrophils % 69.1 % (38.7-73.9); Platelet Count 286 T/CUMM (130-400); Red Blood Count 3.43 MC/CUMM (3.8-5.5); Red Cell Distribution Width 15.4 % (9.3-17.3); White Blood Count 12.4 T/CUMM (4-12)
[2020-09-17 06:14] LABS: Calcium 8.4 MG/DL (8.5-10.1); Osmolality,Calculated 280.5 MOS/KG (273-304); Potassium 4.1 MMOL/L (3.5-5.1)
[2020-09-17] MEDS: INSULIN GLARGINE 100 UNIT/ML SUBCUT SCH (09:13)
[2020-09-17] MEDS: PANTOPRAZOLE 40 MG VIAL IV SCH (09:13)
[2020-09-17] MEDS: TICAGRELOR 90 MG TABLET PO SCH ×2 (09:14→21:37)
[2020-09-17] MEDS: carvediloL 6.25 MG TABLET PO SCH ×2 (09:14→21:37)
[2020-09-17] MEDS: CETIRIZINE 10 MG TABLET PO SCH (09:14)
[2020-09-17] MEDS: ENOXAPARIN 40 MG/0.4 ML SYRINGE SUBCUT SCH (09:14)
[2020-09-17] MEDS: ASPIRIN CHEW 81 MG TABLET PO SCH (09:14)
[2020-09-17] MEDS: LOSARTAN 25 MG TABLET PO SCH (09:14)
[2020-09-17] MEDS: HALOPERIDOL 5 MG/ML AMP IM PRN (10:56)
[2020-09-17] MEDS: SERTRALINE 50 MG TABLET PO SCH (21:37)
[2020-09-17] MEDS: ROSUVASTATIN 20 MG TABLET PO SCH (21:37)
[2020-09-17] MEDS: MONTELUKAST 10 MG TABLET PO SCH (21:37)
[2020-09-18] MEDS: ALBUTEROL/IPRATROPIUM 3 ML NEB RESP TX SCH ×6 (00:45→19:42)
[2020-09-18 05:49] LABS: Basophils # 0.1 10*3/uL (0.0-0.2); Basophils % 0.4 % (0.0-0.8); Eosinophils # 0.4 10*3/uL (0.0-0.87); Eosinophils % 3.7 % (0.00-10.9); Hematocrit 32.6 VOL% (42.0-52.0); Hemoglobin 10.9 GM/DL (14.0-18.0); Immature Granulocytes % 0.7 %; Immature Granulocytes Absolute 0.08 #; Lymphocytes # 1.7 10*3/uL (1.4-4.0); Lymphocytes % 14.9 % (21.2-54.2); Mean Corpuscular HGB Conc 33.4 GM/DL (32-36); Mean Corpuscular Volume 88.8 FL (87-102); Mean Platelet Volume 11.7 FL (9.6-12.0); Monocytes % 9.4 % (1.7-12.7); Neutrophils % 70.9 % (38.7-73.9); Platelet Count 336 T/CUMM (130-400); Red Blood Count 3.67 MC/CUMM (3.8-5.5); Red Cell Distribution Width 15.2 % (9.3-17.3); White Blood Count 11.2 T/CUMM (4-12)
[2020-09-18 06:17] LABS: Calcium 8.4 MG/DL (8.5-10.1); Osmolality,Calculated 279.7 MOS/KG (273-304); Potassium 4.1 MMOL/L (3.5-5.1)
[2020-09-18] MEDS: INSULIN LISPRO 100 UNIT/ML SUBCUT SCH ×4 (07:48→23:34)
[2020-09-18] MEDS: PANTOPRAZOLE 40 MG VIAL IV SCH (09:56)
[2020-09-18] MEDS: ENOXAPARIN 40 MG/0.4 ML SYRINGE SUBCUT SCH (09:56)
[2020-09-18] MEDS: TICAGRELOR 90 MG TABLET PO SCH ×2 (09:57→21:06)
[2020-09-18] MEDS: CETIRIZINE 10 MG TABLET PO SCH (09:57)
[2020-09-18] MEDS: ASPIRIN CHEW 81 MG TABLET PO SCH (09:57)
[2020-09-18] MEDS: LOSARTAN 25 MG TABLET PO SCH (09:57)
[2020-09-18] MEDS: carvediloL 6.25 MG TABLET PO SCH ×2 (09:57→21:06)
[2020-09-18] MEDS: FUROSEMIDE 40 MG TABLET PO SCH (09:57)
[2020-09-18] MEDS: INSULIN GLARGINE 100 UNIT/ML SUBCUT SCH (11:25)
[2020-09-18] MEDS: ROSUVASTATIN 20 MG TABLET PO SCH (21:06)
[2020-09-18] MEDS: SERTRALINE 50 MG TABLET PO SCH (21:06)
[2020-09-18] MEDS: MONTELUKAST 10 MG TABLET PO SCH (21:06)
[2020-09-19] MEDS: ALBUTEROL/IPRATROPIUM 3 ML NEB RESP TX SCH ×6 (00:18→20:43)
[2020-09-19 05:06] LABS: Basophils # 0.1 10*3/uL (0.0-0.2); Basophils % 0.6 % (0.0-0.8); Eosinophils # 0.3 10*3/uL (0.0-0.87); Hematocrit 32.5 VOL% (42.0-52.0); Hemoglobin 10.5 GM/DL (14.0-18.0); Immature Granulocytes % 0.7 %; Immature Granulocytes Absolute 0.07 #; Lymphocytes # 2.3 10*3/uL (1.4-4.0); Lymphocytes % 22.3 % (21.2-54.2); Mean Corpuscular HGB Conc 32.3 GM/DL (32-36); Mean Corpuscular Volume 89.3 FL (87-102); Mean Platelet Volume 11.4 FL (9.6-12.0); Monocytes % 7.8 % (1.7-12.7); Neutrophils % 65.6 % (38.7-73.9); Platelet Count 356 T/CUMM (130-400); Red Blood Count 3.64 MC/CUMM (3.8-5.5); Red Cell Distribution Width 15.3 % (9.3-17.3); White Blood Count 10.2 T/CUMM (4-12)
[2020-09-19] MEDS: INSULIN LISPRO 100 UNIT/ML SUBCUT SCH ×3 (05:10→18:05)
[2020-09-19 05:53] LABS: Calcium 8.3 MG/DL (8.5-10.1); Osmolality,Calculated 282.5 MOS/KG (273-304); Potassium 3.8 MMOL/L (3.5-5.1)
[2020-09-19] MEDS: LOSARTAN 25 MG TABLET PO SCH (09:06)
[2020-09-19] MEDS: ASPIRIN CHEW 81 MG TABLET PO SCH (09:06)
[2020-09-19] MEDS: TICAGRELOR 90 MG TABLET PO SCH ×2 (09:06→21:53)
[2020-09-19] MEDS: carvediloL 6.25 MG TABLET PO SCH ×2 (09:06→21:53)
[2020-09-19] MEDS: ENOXAPARIN 40 MG/0.4 ML SYRINGE SUBCUT SCH (09:07)
[2020-09-19] MEDS: INSULIN GLARGINE 100 UNIT/ML SUBCUT SCH (09:07)
[2020-09-19] MEDS: FUROSEMIDE 40 MG TABLET PO SCH (09:07)
[2020-09-19] MEDS: CETIRIZINE 10 MG TABLET PO SCH (09:07)
[2020-09-19] MEDS: PANTOPRAZOLE 40 MG VIAL IV SCH (09:07)
[2020-09-19] MEDS: MONTELUKAST 10 MG TABLET PO SCH (21:53)
[2020-09-19] MEDS: SERTRALINE 50 MG TABLET PO SCH (21:53)
[2020-09-19] MEDS: ROSUVASTATIN 20 MG TABLET PO SCH (21:53)
[2020-09-20] MEDS: ALBUTEROL/IPRATROPIUM 3 ML NEB RESP TX SCH ×6 (00:43→19:39)
[2020-09-20] MEDS: INSULIN LISPRO 100 UNIT/ML SUBCUT SCH ×4 (01:01→17:51)
[2020-09-20 06:04] LABS: Basophils # 0.1 10*3/uL (0.0-0.2); Basophils % 0.5 % (0.0-0.8); Eosinophils # 0.3 10*3/uL (0.0-0.87); Eosinophils % 2.8 % (0.00-10.9); Hematocrit 31.8 VOL% (42.0-52.0); Hemoglobin 10.5 GM/DL (14.0-18.0); Immature Granulocytes % 0.9 %; Lymphocytes # 1.9 10*3/uL (1.4-4.0); Lymphocytes % 16.5 % (21.2-54.2); Mean Corpuscular Volume 89.1 FL (87-102); Mean Platelet Volume 11.5 FL (9.6-12.0); Monocytes % 7.7 % (1.7-12.7); Neutrophils % 71.6 % (38.7-73.9); Platelet Count 389 T/CUMM (130-400); Red Blood Count 3.57 MC/CUMM (3.8-5.5); Red Cell Distribution Width 15.1 % (9.3-17.3); White Blood Count 11.4 T/CUMM (4-12)
[2020-09-20 06:43] LABS: Calcium 8.6 MG/DL (8.5-10.1); Osmolality,Calculated 285.4 MOS/KG (273-304); Potassium 3.4 MMOL/L (3.5-5.1)
[2020-09-20] MEDS: ASPIRIN CHEW 81 MG TABLET PO SCH (09:47)
[2020-09-20] MEDS: ENOXAPARIN 40 MG/0.4 ML SYRINGE SUBCUT SCH (09:47)
[2020-09-20] MEDS: LOSARTAN 25 MG TABLET PO SCH (09:48)
[2020-09-20] MEDS: TICAGRELOR 90 MG TABLET PO SCH ×2 (09:48→21:08)
[2020-09-20] MEDS: FUROSEMIDE 40 MG TABLET PO SCH (09:48)
[2020-09-20] MEDS: CETIRIZINE 10 MG TABLET PO SCH (09:48)
[2020-09-20] MEDS: carvediloL 6.25 MG TABLET PO SCH ×2 (09:56→21:09)
[2020-09-20] MEDS: INSULIN GLARGINE 100 UNIT/ML SUBCUT SCH (09:56)
[2020-09-20] MEDS: PANTOPRAZOLE 40 MG VIAL IV SCH (09:57)
[2020-09-20] MEDS: POTASSIUM CHLORIDE 20 MEQ/15 ML UDCUP PER TUBE PRN ×2 (13:30→15:22)
[2020-09-20] MEDS: SERTRALINE 50 MG TABLET PO SCH (21:08)
[2020-09-20] MEDS: MEMANTINE 5 MG TABLET PO SCH (21:08)
[2020-09-20] MEDS: ROSUVASTATIN 20 MG TABLET PO SCH (21:09)
[2020-09-20] MEDS: MONTELUKAST 10 MG TABLET PO SCH (21:09)
[2020-09-21] MEDS: ALBUTEROL/IPRATROPIUM 3 ML NEB RESP TX SCH ×4 (00:09→11:16)
[2020-09-21] MEDS: INSULIN LISPRO 100 UNIT/ML SUBCUT SCH ×3 (00:49→12:15)
[2020-09-21 08:21] LABS: Calcium 9.1 MG/DL (8.5-10.1); Osmolality,Calculated 281.7 MOS/KG (273-304); Potassium 3.6 MMOL/L (3.5-5.1)
[2020-09-21] MEDS: PANTOPRAZOLE 40 MG VIAL IV SCH (09:52)
[2020-09-21] MEDS: POTASSIUM CHLORIDE 20 MEQ/15 ML UDCUP PER TUBE PRN (09:54)
[2020-09-21] MEDS: CETIRIZINE 10 MG TABLET PO SCH (09:55)
[2020-09-21] MEDS: TICAGRELOR 90 MG TABLET PO SCH (09:55)
[2020-09-21] MEDS: ASPIRIN CHEW 81 MG TABLET PO SCH (09:55)
[2020-09-21] MEDS: LOSARTAN 25 MG TABLET PO SCH (09:55)
[2020-09-21] MEDS: FUROSEMIDE 40 MG TABLET PO SCH (09:55)
[2020-09-21] MEDS: MEMANTINE 5 MG TABLET PO SCH (09:55)
[2020-09-21] MEDS: carvediloL 6.25 MG TABLET PO SCH (09:55)
[2020-09-21] MEDS: INSULIN GLARGINE 100 UNIT/ML SUBCUT SCH (09:56)
[2020-09-21] MEDS: ENOXAPARIN 40 MG/0.4 ML SYRINGE SUBCUT SCH (09:56)
[2020-09-21 11:05] VITALS: BP 116/45
== END 2020-09-21 16:05 | disposition hospice, home (50) | DRG 215 ==
LOC: N.CL 18:30 → N.ICU 19:19 → N.TELEN 08-27 13:40 → N.ICU 08-31 15:06 → N.TELEN 09-04 14:51 → N.ICU 09-11 04:02 → N.TELEN 09-17 16:47
PROVIDERS: ADMIT Internal Medicine Cardiovascular Disease; ATTEND Internal Medicine Cardiovascular Disease
PROC: CLCCHCL (ICD-10-PCS; 2020-08-24 19:15)